=== PATIENT | male | born 1940 | race Hispanic/Latino ===

== ENCOUNTER 2022-10-06 06:22 | Day surgery (SDC) | payer OTHER ==
[2022-10-06] MEDS ORDERED: TROPICAMIDE 1% OPTH 3 ML BOT ONE (06:46)
[2022-10-06] MEDS ORDERED: PHENYLEPHRINE 10% OPTH 5ML ONE (06:46)
[2022-10-06] MEDS ORDERED: CYCLOPENTOLATE 2% OPTH 2 ML ONE (06:46)
[2022-10-06] MEDS ORDERED: KETOROLAC OPTHALMIC 5 ML BOT ONE (06:46)
[2022-10-06] MEDS ORDERED: Ringers Lactate 1,000 ML IV ONE (06:46)
[2022-10-06] MEDS ORDERED: EPINEPHRINE/PF 1 MG/ML AMP ONE (07:03)
[2022-10-06] MEDS ORDERED: BSS OPTHALMIC SOL 15 ML OPTH ONE (07:03)
[2022-10-06] MEDS ORDERED: TOBRADEX 0.3-0.1% OPTH OINTMENT ONE (07:03)
[2022-10-06] MEDS ORDERED: BALANCED SALT IRRIG PLAIN 500 ML IRR ONE (07:03)
[2022-10-06] MEDS ORDERED: DUOVISC 1 KIT OPTH ONE (07:04)
[2022-10-06] MEDS ORDERED: POVIDONE-IODINE 5% EYE DROPS ONE (07:04)
[2022-10-06 07:15] LABS: Absolute Lymphocytes (CBC) 1.2 K/uL (0.7-4.9); Hematocrit 40.3 % (39.6-49.0); Lymphocytes % 20.1 % (15.3-44.8); MCV 90.6 fL (80-100); RBC Red Blood Cell Count 4.45 M/uL (4.33-5.43)
[2022-10-06 07:28] LABS: Potassium 4.2 mEq/L (3.5-5.1)
[2022-10-06 08:45] VITALS: BP 147/59; TEMP 97.5; O2SAT 97
--- NOTE | 2022-10-07 14:18 | EKG ---
Test Date: 2022-10-06 Test Time: 07:09:25 Instrument Mechanic: FRANCY MEASUREMENT RESULTS: Intervals: Rate: 65 DC: 178 QRSD: 100 QT: 384 QTc: 399 [place]: P: 12 DC: 178 QRS: 16 T: 14 INTERPRETIVE STATEMENTS: Normal sinus rhythm Normal ECG Compared to ECG 05/28/2012 18:47:15 No significant changes Electronically Signed On 10-07-22 14:17:11 CDT by Albert Abdi
== END 2022-10-06 08:07 | disposition home or self-care (01) ==
LOC: OR 06:22
PROVIDERS: ATTEND Ophthalmology
DX: H26.9 Unspecified cataract (principal); Z53.09 Procedure and treatment not carried out because of other contraindication
CPT/HCPCS: 93005; 85025; 80048; 36415; J7120; J0171; J1885

== ENCOUNTER 2023-01-05 06:17 | Day surgery (SDC) | payer OTHER ==
[2023-01-02 14:01] LABS: Potassium 4.4 mEq/L (3.5-5.1)
[2023-01-05] MEDS ORDERED: BSS OPTHALMIC SOL 15 ML OPTH ONE (06:58)
[2023-01-05] MEDS ORDERED: EPINEPHRINE/PF 1 MG/ML AMP ONE (06:58)
[2023-01-05] MEDS: PHENYLEPHRINE 10% OPTH 5ML ONE ×3 (07:10→07:35)
[2023-01-05] MEDS: CYCLOPENTOLATE 2% OPTH 2 ML ONE ×3 (07:10→07:34)
[2023-01-05] MEDS: TROPICAMIDE 1% OPTH 3 ML BOT ONE ×3 (07:10→07:35)
[2023-01-05] MEDS: MOXIFLOXACIN HCL 10 DROPS/ML **OR USE OPTH ONE ×3 (07:10→07:35)
[2023-01-05] MEDS ORDERED: Ringers Lactate 1,000 ML IV ONE (07:13)
[2023-01-05] MEDS ORDERED: FENTANYL CITR 100 MCG/2 ML ONE (07:36)
[2023-01-05] MEDS ORDERED: propofoL 200 MG/20 ML VIAL IV ONE ×2 (07:36→08:00)
[2023-01-05] MEDS ORDERED: LIDOCAINE 2% MPF 5 ML VIAL ONE (07:37)
[2023-01-05] MEDS ORDERED: ONDANSETRON 4 MG/2 ML VIAL ONE ×2 (07:38→08:10)
[2023-01-05] MEDS ORDERED: KETOROLAC OPTHALMIC 5 ML BOT ONE (07:42)
[2023-01-05] MEDS: POVIDONE-IODINE 5% EYE DROPS ONE ×2 (07:55→07:59)
[2023-01-05] MEDS: BALANCED SALT IRRIG PLAIN 500 ML IRR ONE ×2 (07:57→08:01)
[2023-01-05] MEDS: DUOVISC 1 KIT OPTH ONE ×4 (08:00→08:15)
[2023-01-05] MEDS: TOBRADEX 0.3-0.1% OPTH OINTMENT ONE ×2 (08:02→08:15)
[2023-01-05] MEDS ORDERED: EPHEDRINE SULF 50 MG/ML VIAL ONE (08:04)
[2023-01-05] MEDS ORDERED: dexAMETHasone 4 MG/ML VIAL ONE (08:36)
[2023-01-05 09:32] VITALS: BP 140/52; TEMP 97.7; O2SAT 98
== END 2023-01-05 11:00 | disposition home or self-care (01) ==
LOC: OR 06:17
PROVIDERS: ATTEND Ophthalmology
PROC: 08RJ3JZ Replacement of Right Lens with Synthetic Substitute, Percutaneous Approach (ICD-10-PCS; principal; 2023-01-05 07:30)
DX: H25.13 Age-related nuclear cataract, bilateral (principal); I10 Essential (primary) hypertension
CPT/HCPCS: 80048; 36415; 66984; J2704 ×2; J1100; J0171; J1885; J2001; J3010; J2405 ×2; J7120; V2632

== ENCOUNTER 2023-04-04 05:57 | Day surgery (SDC) | payer OTHER ==
[2023-03-31 12:53] LABS: Potassium 4.7 mEq/L (3.5-5.1)
[2023-04-04] MEDS ORDERED: Ringers Lactate 1,000 ML IV ONE (06:22)
[2023-04-04] MEDS: PHENYLEPHRINE 10% OPTH 5ML ONE ×3 (06:53→07:23)
[2023-04-04] MEDS: TROPICAMIDE 1% OPTH 15 ML BOT ONE ×3 (06:53→07:23)
[2023-04-04] MEDS: CYCLOPENTOLATE 2% OPTH 2 ML ONE ×3 (06:53→07:23)
[2023-04-04] MEDS: MOXIFLOXACIN HCL 0.5% 3ML OPTH OPTH ONE ×3 (06:53→07:23)
[2023-04-04] MEDS: KETOROLAC OPTHALMIC 5 ML BOT ONE ×3 (06:53→07:23)
[2023-04-04] MEDS ORDERED: BSS OPTHALMIC SOL 15 ML OPTH ONE (06:59)
[2023-04-04] MEDS ORDERED: POVIDONE-IODINE 5% EYE DROPS ONE (07:00)
[2023-04-04] MEDS ORDERED: BALANCED SALT IRRIG PLAIN 500 ML IRR ONE (07:00)
[2023-04-04] MEDS ORDERED: TOBRADEX 0.3-0.1% OPTH OINTMENT ONE (07:00)
[2023-04-04] MEDS ORDERED: EPINEPHRINE 1 MG/ML VIAL ONE (07:00)
[2023-04-04] MEDS ORDERED: DUOVISC 1 KIT OPTH ONE (07:01)
[2023-04-04] MEDS ORDERED: FENTANYL CITR 100 MCG/2 ML ONE (07:22)
[2023-04-04] MEDS ORDERED: ONDANSETRON 4 MG/2 ML VIAL ONE (07:22)
[2023-04-04] MEDS ORDERED: propofoL 200 MG/20 ML VIAL IV ONE (07:22)
[2023-04-04] MEDS ORDERED: LIDOCAINE 2% MPF 5 ML VIAL ONE (07:22)
[2023-04-04] MEDS ORDERED: dexAMETHasone 4 MG/ML VIAL ONE (07:47)
[2023-04-04] MEDS ORDERED: EPHEDRINE SULF 50 MG/ML VIAL ONE (07:47)
--- NOTE | 2023-04-04 09:14 | OP ---
Date of Procedure: 04/04/2023 Surgeon: Onel Garibay MD Preoperative Diagnosis: Visually significant senile cataract, left eye. Postoperative Diagnosis: Visually significant senile cataract, left eye. Procedure Performed: Cataract extraction, left eye, with placement of intraocular lens. Description Of Procedure: After being properly identified in the preoperative holding area, the heraclio ent was taken back to the operating room, where a time-out was performed. The patient was then prepp ed and draped in the normal sterile fashion. Examination of the eye underneath the operating [facility] ope revealed a well-dilated pupil with a good red reflex. The globe was grasped with a pair of 0.12 forceps and paracentesis wounds were made in the 12 o'clock and 6 o'clock positions and the anterior chamber filled with Viscoat. Thereafter, the main phaco incision wound was made temporally using a 2 .4 mm keratome in a triplanar fashion. A continuous curvilinear capsulorrhexis was created using a c ystotome and completed with an Utrata forceps. Hydrodissection and hydrodelineation were carried out resulting in free rotation of the lens nucleus. Phacoemulsification was carried out using a standar d divide and conquer technique. Once all 4 quadrants had been removed, the phaco handpiece was excha nged for bimanual irrigation/aspiration handpieces, which were used to remove the remaining cortical material. The capsular bag was polished and then additional viscoelastic used to inflate the capsula r bag and a Ady and Ady model BC blue power 23.5 diopters, serial #[id number], was implanted into the capsular bag and rotated into position. The bimanual irrigation/ aspiration handpieces were then used to remove all remaining viscoelastic material. The wounds were hydrated and confirmed to be watertight and the procedure concluded with the patient tolerating the procedure well having been under general anesthesia the entire time. The lid speculum and drapes were removed and the eye patch ed over TobraDex ointment. The patient was taken to the postoperative holding area in stable conditi on. As I mentioned, he is to follow up with myself, Dr. Onel Garibay, tomorrow morning. There wer e no complications. Estimated blood loss was nil. No specimens were sent. No drains were placed an d implants are as above. JPG/MODL Voice ID: [id number] Report ID: [id number]
[2023-04-04 10:33] VITALS: BP 147/60; TEMP 96.2; O2SAT 99
== END 2023-04-04 11:20 | disposition home or self-care (01) ==
LOC: OR 05:57
PROVIDERS: ATTEND Ophthalmology
PROC: 08RK30Z Replacement of Left Lens with Intraocular Telescope, Percutaneous Approach (ICD-10-PCS; principal; 2023-04-04 07:30)
DX: H25.9 Unspecified age-related cataract (principal); H54.7 Unspecified visual loss; I10 Essential (primary) hypertension
CPT/HCPCS: 36415; 80048; J0171; J1100; J1885; J2001; J2405; J2704; J3010; J7120; V2632

== ENCOUNTER 2024-03-29 06:30 | Day surgery (SDC) | payer OTHER ==
[2024-03-28 14:49] LABS: Absolute Eosinophils 0.1 K/uL (0-0.5); Absolute Lymphocytes (CBC) 1.3 K/uL (0.7-4.9); Absolute Monocytes 0.5 K/uL (0.1-1.3); Basophils % 0.4 % (0-1.3); Eosinophils % 1.5 % (0-4.4); Hematocrit 37.9 % (39.6-49.0); Hemoglobin 12.8 g/dL (13.6-17.9); Lymphocytes % 18.1 % (15.3-44.8); MCH 31.7 pg (27.0-35.0); MCHC 33.6 g/dL (32.0-36.0); MCV 94.4 fL (80-100); MPV 9.7 fL (7.6-11.3); Monocytes % 7.9 % (3.3-12.3); Neutrophils % 72.1 % (41.7-73.7); Nucleated Red Blood Cells % 0.2 % (0-0); Platelets 173 thou/uL (152-406); RBC Red Blood Cell Count 4.02 M/uL (4.33-5.43); Red Cell Distribution Width 13.2 % (12.1-15.2)
[2024-03-28 14:54] LABS: PT Prothrombin Time 10.8 SECONDS (9.4-12.5); PTT, Activated Partial Thromb 31.4 SECONDS (24.3-36.9); Protime INR 0.96
[2024-03-28 15:05] LABS: Anion Gap 6.1 mEq/L (5.0-15.0); Potassium 4.1 mEq/L (3.5-5.1)
--- NOTE | 2024-03-28 18:38 | RAD REPORT ---
EXAMINATION: TWO VIEW CHEST XR CLINICAL INDICATION: Male, 83 years old. 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 COMPARISON: 01/29/2013 FINDINGS: The lungs are well inflated and clear. No pneumothorax or sizable effusion. The heart is normal in si ze. Mediastinal contours are unremarkable. IMPRESSION: No acute or significant abnormalities.
[2024-03-29] MEDS ORDERED: VERAPAMIL HCL 10 MG/4 ML VIAL IV ONE (06:45)
[2024-03-29] MEDS ORDERED: HEPARIN 10,000 UNIT/10 ML VIAL IV ONE ×2 (06:45→07:39)
[2024-03-29] MEDS ORDERED: LIDOCAINE 1% 20 ML MDV ONE (06:45)
[2024-03-29] MEDS ORDERED: HEPA 1000U/500MLS 2,000 UNIT/1,000 ML BAG IV ONE (06:45)
[2024-03-29] MEDS ORDERED: ATROPINE SULF 1 MG/10 ML SYR IV ONE (06:46)
[2024-03-29] MEDS ORDERED: MIDAZOLAM HCL 2 MG/2 ML INJ ONE (06:46)
[2024-03-29] MEDS ORDERED: CLOPIDOGREL 75 MG TABLET ONE (06:47)
[2024-03-29] MEDS ORDERED: HEPARIN 5000 UNIT/ML 1 ML VIAL ONE (06:47)
[2024-03-29] MEDS ORDERED: ASPIRIN 325 MG TAB ONE (06:47)
[2024-03-29] MEDS ORDERED: FENTANYL CITR 100 MCG/2 ML ONE (06:47)
[2024-03-29] MEDS ORDERED: TICAGRELOR 90 MG TABLET PO ONE (06:47)
[2024-03-29] MEDS ORDERED: NA CHLORIDE 0.9% 500 ML ONE (07:01)
[2024-03-29] MEDS ORDERED: ASPIRIN 81 MG CHEWABLE TABLET ONE (07:40)
[2024-03-29 08:29] VITALS: TEMP 97.8
--- NOTE | 2024-03-29 09:00 | OP ---
Date of Procedure: 03/29/2024 Surgeon: GLADIS BELTRAN Procedures Performed: 1.Selective coronary angiogram. 2.Left heart catheterization. 3.PCI of severe proximal to mid LAD stenosis, used 2.75 x 38 mm Synergy drug-eluting stent overlappe d proximally by another 2.75 x 60 mm Synergy drug-eluting stent, balloon inflated to high pressure to a size of 2.95. Indication: Chest pain with abnormal stress test. Access: Right radial artery 6-Eritrean, closed with TR band. Complications: None. Bleeding: Less than 50 mL. Anesthesia: Total sedation time was 45 minutes, used fentanyl and Versed. Description Of Procedure: After risks, benefits, and alternatives were explained, the patient agreed to procedure and signed informed consent. [facility], prepped and draped in usual sterile fashion. Then, I accessed right radial artery using pedi atric micropuncture kit, placed a 6-Eritrean Slender sheath, and took 5-Eritrean Kalida 4 catheter over J- wire into the aortic root across the aortic valve, measured LVEDP. Pullback did not record any gradi ent, then engaged the left main, took standard views, and then the RCA, took standard views, and then exchanged for 6-Eritrean EBU3.5 guide, engaged the left main, gave systemic heparin to assure ACT leve l above 250 throughout the procedure, loaded with 180 Brilinta and 81 mg of aspirin and then took bienvenido rt run-through wire into the LAD, placed it distally crossing the stenosis. Subsequently, I used a 3 .0 balloon to pre-dilate the lesion. Lesion expanded very well and then placed a 2.75 x 38 mm Synerg y drug-eluting stent to cover the mid segment all the way proximal and then placed another 2.75 x 60 mm stent to overlap with the first one, inflated the balloon to high pressure to a size of 2.95, and then final angiogram after removing the wire was satisfactory. Excellent results and then removed th e guide and the sheath and placed TR band with good hemostasis. Findings: 1.Left main is normal. 2.LAD; proximal diffuse 70% to 80%, mid 90%, status post successful PCI as above. Diagonal branch h as luminal irregularities. The rest of the LAD is normal. 3.Left circumflex, very large and dominant. It has takeoff OM focal 40% stenosis, OM has mid 80% st enosis, and the circ distally has 60% focal stenosis. 4.RCA; small, nondominant with luminal irregularities. 5.LVEDP is elevated at 50 mmHg. 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 2.Severe OM1 branch stenosis. We will stage this for PCI at a later time in about 4 to 6 weeks. Recommendation: Aspirin, Brilinta, high-dose statin, and staged PCI of the OM1 in about 4 to 6 weeks . SR/MODL Voice ID: [id number] Report ID: [id number]
[2024-03-29 10:01] VITALS: O2SAT 100
[2024-03-29 11:15] VITALS: BP 158/60
--- NOTE | 2024-04-05 16:21 | EKG ---
Test Date: 2024-03-28 Test Time: 14:33:30 Change Management: ANATOLY MEASUREMENT RESULTS: Intervals: Rate: 64 [place]: 174 QRSD: 108 QT: 400 QTc: 412 [place]: P: 72 WA: 174 QRS: 64 T: 42 INTERPRETIVE STATEMENTS: Normal sinus rhythm Normal ECG Compared to ECG 10/06/2022 07:09:25 No significant changes Electronically Signed On 04-05-24 16:08:49 NAIL TECHNICIAN TEACHER by Oscar Christianson
== END 2024-03-29 11:30 | disposition home or self-care (01) ==
LOC: PRE 06:30 → CCL 11:30
PROVIDERS: ATTEND Internal Medicine
DX: I25.10 Atherosclerotic heart disease of native coronary artery without angina pectoris (principal); I10 Essential (primary) hypertension; E78.2 Mixed hyperlipidemia; Z79.82 Long term (current) use of aspirin; Z79.899 Other long term (current) drug therapy
CPT/HCPCS: 36415; 71046; 76937; 80048; 85025; 85610; 85730; 93005; 93458; 99152; C1725; C1893; C9600; J0461; J1644; J2003; J2250; J3010; J7040; Q9966

== ENCOUNTER 2024-04-15 14:15 | Inpatient (IN) | payer OTHER ==
--- OUTSIDE RECORDS SUMMARY | 2024-04-15 14:19 | XMS REPORT | Continuity of Care Document ---
Author Name Unknown Address [address] [facility]. [address] [place] [address] [facility] Address [address] [facility] [address] [place] [address] Care Team Providers Care Chief Deputy Sheriff Name Role Phone OCTAVIO Heart [facility], [facility] Care Physician Unavailable HANG RODRIGUEZ Attending Clinician Unavailable NAHID SHUKLA Attending Clinician Unavailable Nahid Shukla MD Attending Clinician [phone] Hang Rodriguez MD Attending Clinician [phone] GLEN MILTON Attending Clinician Unavailable Glen Milton MD Attending Clinician [phone] Hang Rodriguez MD Attending Clinician [phone] YE FRANCO Attending Clinician UnavailANIKA Soto Attending Clinician Unavailable KIET WHATLEY Attending Clinician Unavailable BUCKY GALLARDO Attending Clinician Unavailable JACKIE BHATTI Attending Clinician Unavailable ZENAIDA WELLINGTON Attending Clinician Unava ilyulissa PATTON Attending Clinician Unavailable Zenaida Wellington MD Attending Clinician [phone] Karine GAUTHIER, Glen Attending Clinician [phone] Doctor Unassigned, Edon Attending Clinician U navailable Lab, Adc Fam Pob I Attending Clinician Unavailab Fernanda Hollingsworth Attending Clinician FERNANDA BRITTON Attending Clinician Unavailable HNAG RODRIGUEZ Admitting Clinician Unavailable POOJA Admitting Clinician Unavailable Payers Payer Name Policy Type Policy Number Effective Date Expirati on Date Source HUMANSean GOLD PLS O [id number] 2021 00:00:00 MEDICAID [facility] [id number] 2019 00:00:00 WELLCARE NO PREMIUM HMO [id number] 2020 00:00:00 [employer] MEDICARE ADVANTAGE DUAL PLAN HMO 7 [id number] 2021 00:00:00 HU[employer]NA MEDICARE [id number] GOLD PLUS 2021 7 [id number] 2021 00:00:00 Problems Condition Name Condition Details Condition Category Status Onset Date Resolution Date Last Treatment Date Treating Clinician Comments Source 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) Disease Active 01-14 00:00: 00 [facility] Confusion Confusion Disease Active 08-08 00:00: 00 [facility] Coronary artery disease involving [place] coronary artery of [place] heart without angina pectoris Coronary artery disease involving [place] coronary artery of [place] heart without angina pectoris Disease Active 08-08 00:00: 00 [facility] Chest pain, unspecifie d type Chest pain, unspecifie d type Disease Active 08-08 00:00: 00 [facility] Malignant neoplasm of prostate Malignant neoplasm of prostate Disease Active 09-19 00:00: 00 [facility] 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 ICD10 Diagnosis Term Test Administrator Utility [facility] Cough Cough Disease Active 11-29 00:00: 00 [facility] Essential hypertensi on, benign Essential hypertensi on, benign Disease Active 11-29 00:00: 00 [facility] HLD (hyperlipi demia) HLD (hyperlipi demia) Disease Active 11-29 00:00: 00 Overview: Formattin g of this note might be different from the original. ICD10 Diagnosis Term Test Administrator Utility [facility] Esophageal reflux Esophageal reflux Disease Active 11-29 00:00: 00 [facility] Allergies, Adverse Reactions, Alerts Allergy Name Allergy Type Status Severity Reaction(s) Onset Date Inactive Date Treating Clinician Comments Source No Known Allergie s DA Active U 11-17 00:00: 00 [facility] No Known Allergie s DA Active U 11-16 00:00: 00 [facility] BECK INHIBITO RS Drug Class Active Unknown-Cmnt 09-19 00:00: 00 [facility] Beck Inhibito rs Propensi ty to adverse reaction s Active Unknown - See comments 09-19 00:00: 00 Cough [facility] Beck Inhibito rs Propensi ty to adverse reaction s Active Unknown - See comments 09-19 00:00: 00 Cough [facility] Social History Social Habit Start Date Stop Date Quantity Comments Source [facility] Exposure to SARS-CoV-2 (event) Not sure [facility] History SDOH Alcohol Frequency [facility] History SDOH Alcohol Std Drinks [facility] History SDOH Alcohol Binge [facility] Alcoholic beverage intake 2024-04-03 00:00:00 2024-04-03 00:00:00 Current drinker of alcohol (finding) [facility] History of Social function 2023-08-09 00:00:00 2023-08-09 00:00:00 [facility] Tobacco use and exposure 2023-08-09 00:00:00 2023-08-09 00:00:00 Smokeless tobacco non-user [facility] Alcohol intake 2023-08-09 00:00:00 2023-08-09 00:00:00 Current drinker of alcohol (finding) [facility] Alcohol Comment 2006-12-08 00:00:00 2006-12-08 00:00:00 quit moderate etoh use 30+ yrs ago [facility] Sex assigned at 1940 00:00:00 1940 00:00:00 [facility] Smoking Status Start Date Stop Date Source Never smoked tobacco [facility] Medications Ordered Medication Name Filled Medication Name Start Date Stop Date Current Medication? Ordering Clinician Indication Dosage Frequency Signature (SIG) Comments Components Source VITAMIN E, BULK, MISC 2023-04 14:54: 13 Yes 180mg Take 180 mg in the morning. [facility] Zinc Acetate, Oral, 50 mg (zinc) Cap 2023-04 14:54: 13 Yes Take by mouth. [facility] donepeziL 5 mg tablet 01-19 00:00: 00 Yes [facility] tc 99m-tetrofo smin (MYOVIEW) injection 41.4 millicurie 01-17 17:30: 00 01-17 17:20 :00 No [id number] 41.4mCi 41.4 millicurie , Intravenou s, ONCE, 1 dose, On Mon01/18/24 at 1230, Routine [facility] tc 99m-tetrofo smin (MYOVIEW) injection 15.2 millicurie 01-17 16:00: 00 01-17 16:00 :00 No [id number] 15.2mCi 15.2 millicurie , Intravenou s, ONCE, 1 dose, On Mon01/18/24 at 1100, Routine [facility] donepeziL 10 mg tablet 08-08 13:40: 58 08-08 00:00 :00 No 10mg Take 1 tablet by mouth in the morning. [facility] valsartan 320 mg tablet 08-02 00:00: 00 Yes 320mg Take 1 tablet by mouth in the morning. [facility] atorvastati n 20 mg tablet 08-02 00:00: 00 Yes 20mg Take 1 tablet by mouth at bedtime. [facility] HYDROCHLORO THIAZIDE 25 MG ORAL TAB 09-17 00:00: 00 08-08 00:00 :00 No [id number] 1 tab po dilay [facility] VIAGRA 50 MG ORAL TAB 06-12 00:00: 00 Yes [id number] 1 by mouth every day prn ED [facility] PEPCID 40 MG ORAL TAB 06-12 00:00: 00 08-08 00:00 :00 No [id number] 1 po bid [facility] METOPROLOL TARTRATE 25 MG ORAL TAB 06-12 00:00: 00 08-08 00:00 :00 No [id number] 1 po bid [facility] PRAVACHOL 20 MG ORAL TAB 06-12 00:00: 00 08-08 00:00 :00 No [id number] 1 po qhs [facility] LISINOPRIL- HYDROCHLORO THIAZIDE 20-25 MG ORAL TAB 06-12 00:00: 00 08-08 00:00 :00 No [id number] 1 by mouth every day [facility] ENALAPRIL MALEATE 10 MG ORAL TAB 12-08 00:00: 00 08-08 00:00 :00 No [id number] 1 po bid [facility] HYDROCHLORO THIAZIDE 25 MG ORAL TAB 12-08 00:00: 00 08-08 00:00 :00 No [id number] 1 po qam [facility] PROTONIX 40 MG ORAL TBEC 12-08 00:00: 00 08-08 00:00 :00 No [id number] 1 po bid [facility] ASPIRIN 81 MG ORAL CHEW 2005-04 00:00: 00 Yes 1 tab daily [facility] Immunizations Ordered Immunization Name Filled Immunization Name Date Status Comments Source PPD (TB) 2005-11-29 00:00:00 Completed [facility] PPD (TB) 2005-11-29 00:00:00 Completed [facility] PPD (TB) 2005-11-29 00:00:00 Completed [facility] PPD (TB) 2005-11-29 00:00:00 Completed [facility] PPD (TB) 2005-11-29 00:00:00 Completed [facility] PPD (TB) 2005-11-29 00:00:00 Completed [facility] PPD (TB) 2005-11-29 00:00:00 Completed [facility] PPD (TB) 2005-11-29 00:00:00 Completed [facility] PPD (TB) 2005-11-29 00:00:00 Completed [facility] PPD (TB) Unknown Completed [facility] PPD (TB) Unknown Completed [facility] PPD (TB) Unknown Completed [facility] PPD (TB) Unknown Completed [facility] PPD (TB) Unknown Completed [facility] PPD (TB) Unknown Completed [facility] PPD (TB) Unknown Completed [facility] Vital Signs Vital Name Observation Time Observation Value Comments S ource Systolic blood pressure 2024-04-03 19:25:00 130 mm[Hg] [facility] Diastolic blood pressure 2024-04-03 19:25:00 73 mm[Hg] [facility] Heart rate 2024-04-03 19:25:00 70 /min [facility] Body temperature 2024-04-03 19:25:00 36.39 Aide [facility] Body height 2024-04-03 19:25:00 172.7 cm [facility] Body weight 2024-04-03 19:25:00 73.846 kg [facility] BMI 2024-04-03 19:25:00 24.75 kg/m2 [facility] Oxygen saturation in Arterial blood by Pulse oximetry 2024-04-03 19:25:00 98 /min [facility] Systolic blood pressure 2024-01-23 19:23:00 133 mm[Hg] [facility] Diastolic blood pressure 2024-01-23 19:23:00 63 mm[Hg] [facility] Heart rate 2024-01-23 19:23:00 76 /min [facility] Body temperature 2024-01-23 19:18:00 36.61 Aide [facility] Respiratory rate 2024-01-23 19:18:00 16 /min [facility] Body height 2024-01-23 19:18:00 172.7 cm [facility] Body weight 2024-01-23 19:18:00 72.576 kg [facility] BMI 2024-01-23 19:18:00 24.33 kg/m2 [facility] Oxygen saturation in Arterial blood by Pulse oximetry 2024-01-23 19:18:00 98 /min [facility] Systolic blood pressure 2024-01-15 15:26:00 111 mm[Hg] [facility] Diastolic blood pressure 2024-01-15 15:26:00 52 mm[Hg] [facility] Heart rate 2024-01-15 15:26:00 67 /min [facility] Body temperature 2024-01-15 15:26:00 36.44 Aide [facility] Respiratory rate 2024-01-15 15:26:00 16 /min [facility] Body height 2024-01-15 15:26:00 172.7 cm [facility] Body weight 2024-01-15 15:26:00 70.67 kg [facility] BMI 2024-01-15 15:26:00 23.69 kg/m2 [facility] Oxygen saturation in Arterial blood by Pulse oximetry 2024-01-15 15:26:00 98 /min [facility] Systolic blood pressure 2023-08-09 18:29:00 117 mm[Hg] [facility] Diastolic blood pressure 2023-08-09 18:29:00 49 mm[Hg] [facility] Heart rate 2023-08-09 18:29:00 75 /min [facility] Respiratory rate 2023-08-09 18:29:00 19 /min [facility] Body height 2023-08-09 18:29:00 172.7 cm [facility] Body weight 2023-08-09 18:29:00 81.012 kg [facility] BMI 2023-08-09 18:29:00 27.16 kg/m2 [facility] Oxygen saturation in Arterial blood by Pulse oximetry 2023-08-09 18:29:00 98 /min [facility] Heart rate 2021-02-25 21:25:00 64 /min [facility] Body temperature 2021-02-25 21:25:00 36.22 Aide [facility] Respiratory rate 2021-02-25 21:25:00 18 /min [facility] Body height 2021-02-25 21:25:00 172.7 cm [facility] Body weight 2021-02-25 21:25:00 82.283 kg [facility] BMI 2021-02-25 21:25:00 27.58 kg/m2 [facility] Oxygen saturation in Arterial blood by Pulse oximetry 2021-02-25 21:25:00 100 /min [facility] Systolic blood pressure 2021-02-25 21:25:00 152 mm[Hg] [facility] Diastolic blood pressure 2021-02-25 21:25:00 66 mm[Hg] [facility] Procedures Procedure Date / Time Performed Performing Clinician Source LACHELLE,POST-VOID RES,US,NON-IMAGING 2024-04-03 19:33:00 Nahid Shukla [facility] LACHELLE,POST-VOID RES,US,NON-IMAGING 2024-01-23 19:43:00 Glen Milton [facility] POCT URINALYSIS AUTO 2024-01-23 19:43:00 Dipika Milton [facility] NM MYOCARDIUM PERFUSION STRESS AND REST 2024-01-18 19:01:00 Hang Rodriguez [facility] MYOCARDIUM PERFUSION STRESS AND REST 2024-01-18 19:01:00 Hang Rodriguez [facility] NM MYOCARDIUM PERFUSION STRESS AND REST 2024-01-18 19:01[facility]FUSION STRESS AND REST 2024-01-18 19:01:00 [facility] TRANSTHORACIC ECHO (TTE) COMPLETE 2024-01-18 17:13:00 [facility] & RHYTHM STRIP 2023-08-09 18:34:10 [facility] 2023-08-08 13:59:58 Doctor Zhanna james, Edon [facility] POCT URINALYSIS AUTO 2021-02-25 21:21:00 Dipika Milton [facility] Encounters Start Date/Time End Date/Time Encounter Type Admission Type Attending [facility] Care Facility Care Department Encounter ID Source 2024-08-08 13:00:00 2024-08-08 13:00:00 [id number] 2024-04-03 13:30:00 2024-04-03 14:19:55 Outpatient R VAZQUEZ, [facility] [id number] [facility] 2024-04-03 13:30:00 2024-04-03 14:19:55 Office Visit VazquezNahid [facility] [id number] 350.1.13.10 4.2.7.2.686 [id number] [facility] 2024-02-19 09:00:00 2024-02-19 09:00:00 Outpatient R VAZQUEZ, [facility] [id number] [facility] 2024-01-30 14:00:00 2024-01-30 14:00:00 Outpatient Daniela VAZQUEZ [facility] [id number] [facility] 2024-01-19 00:00:00 2024-01-26 13:26:14 [facility] [id number] 350.1.13.10 4.2.7.2.686 [id number] [facility] 2024-01-23 14:30:00 2024-01-23 16:08:25 [id number] 2024-01-23 14:30:00 2024-01-23 16:08:25 [facility] [id number] 350.1.13.10 4.2.7.2.686 [id number] [facility] 2024-01-18 10:50:11 2024-01-18 23:59:00 Outpatient R HANG RODRIGUEZ [facility] [id number] [facility] 2024-01-18 10:50:11 2024-01-18 23:59:00 Hospital Encounter Hang Rodriguez [facility] 1.2.840.114 350.1.13.10 4.2.7.2.686 [id number] [facility] 2024-01-18 10:49:53 2024-01-18 10:49:53 Hospital Encounter Hang Rodriguez [facility] 1.2.840.114 350.1.13.10 4.2.7.2.686 [id number] [facility] 2024-01-18 10:49:42 2024-01-18 10:49:42 Hospital Encounter Hang Rodriguez [facility] 1.2.840.114 350.1.13.10 4.2.7.2.686 [id number] [facility] 2024-01-18 10:49:06 2024-01-18 10:49:06 Hospital Encounter Hang Rodriguez [facility] 1.2.840.114 350.1.13.10 4.2.7.2.686 [id number] [facility] 2024-01-18 00:30:00 2024-01-18 10:48:00 Hospital Encounter Hang Rodriguez [facility] 1.2.840.114 350.1.13.10 4.2.7.2.686 [id number] [facility] 2024-01-15 10:00:00 2024-01-15 10:40:29 [facility] [id number] [facility] 2024-01-15 10:00:00 2024-01-15 10:40:29 [facility] 1.2.840.114 350.1.13.10 4.2.7.2.686 [id number] [facility] 2023-09-28 00:00:00 2023-09-28 00:00:00 Outpatient R HANG RODRIGUEZ [facility] [id number] [facility] 2023-09-21 00:00:00 2023-09-21 14:19:10 Telephone Hang Rodriguez [facility] 1.2.840.114 350.1.13.10 4.2.7.2.686 [id number] [facility] 2023-09-07 15:38:20 2023-09-07 23:59:00 [facility] [id number] [facility] 2023-09-07 15:38:20 2023-09-07 23:59:00 [facility] 1.2.840.114 350.1.13.10 4.2.7.2.686 [id number] [facility] 2023-08-11 00:00:00 2023-08-11 00:00:00 [facility] 1.2.840.114 350.1.13.10 4.2.7.2.686 [id number] [facility] 2023-08-10 00:00:00 2023-08-10 00:00:00 [facility] 1.2.840.114 350.1.13.10 4.2.7.2.686 [id number] [facility] 2023-08-09 13:40:00 2023-08-09 14:01:25 [facility] [id number] [facility] 2023-08-09 13:40:00 2023-08-09 14:01:25 [facility] 1.2.840.114 350.1.13.10 4.2.7.2.686 [id number] [facility] 2023-08-07 00:00:00 2023-08-07 00:00:00 [facility] 1.2.840.114 350.1.13.10 4.2.7.2.686 [id number] [facility] 2023-08-01 13:00:00 2023-08-01 13:00:00 Outpatient R YE FRANCO [facility] [id number] [facility] 2023-06-08 15:30:00 2023-06-08 15:30:00 Outpatient R YE FRANCO [facility] [id number] [facility] 2022-01-19 13:00:00 2022-01-19 13:00:00 Outpatient ANIKA DRAPER [id number] [facility] 2022-01-17 13:20:00 2022-01-17 13:20:00 Outpatient KIET WHATLEY [facility] [id number] [facility] 2022-01-13 00:00:00 2022-01-13 00:00:00 Outpatient BUCKY GALLARDO [facility] [id number] [facility] 2021-12-20 14:20:00 2021-12-20 14:20:00 Outpatient JACKIE BHATTI [facility] [id number] [facility] 2021-11-16 00:00:00 2021-11-16 00:00:00 Outpatient ZENAIDA WELLINGTON [id number] [facility] 2021-11-15 10:43:00 2021-11-15 10:43:00 Outpatient LLOYDDAVIE IRBY IL[facility] [id number] [facility] 2021-11-15 00:00:00 2021-11-15 00:00:00 Outpatient ZENAIDA WELLINGTON [id number] [facility] 2021-10-15 00:00:00 2021-10-15 00:00:00 Outpatient ZENAIDA WELLINGTON [id number] [facility] 2021-10-07 14:30:00 2021-10-07 15:00:00 Office Visit Zenaida Wellington [place] 1.2.840.114 350.1.13.13 [id number] [id number] [facility] 2021-10-06 14:30:00 2021-10-06 14:30:00 Outpatient ZENAIDA WELLINGTON [id number] [facility] 2021-03-25 14:00:00 2021-03-25 14:00:00 Outpatient NAHID GARCIA [facility] [id number] [facility] 2021-02-25 15:30:00 2021-02-25 16:59:55 Outpatient GLEN MOSCOSO [facility] [id number] [facility] 2021-02-25 15:26:25 2021-02-25 16:59:55 Office Visit Glen Milton [facility] 1.2.840.114 350.1.13.10 4.2.7.2.686 [id number] [facility] 2021-01-28 00:00:00 2021-01-28 00:00:00 Orders Only Doctor Unassigned, Edon [facility] 1.20.114 350.1.13.10 4.2.7.2.686 [id number] [facility] 2019-11-29 11:10:53 2019-11-29 11:30:53 Laboratory Only Lab, Adc [facility] 1.284.114 350.1.13.10 4.2.7.2.686 [id number] [facility] 2019-11-29 11:00:00 2019-11-29 11:00:00 Outpatient R FERNANDA BRITTON [facility] [id number] [facility] 2019-11-29 00:00:00 2019-11-29 00:00:00 Letter (Out) Doctor Unassigned, Edon [facility] 1.2840.114 350.1.13.10 4.2.7.2.686 [id number] [facility] 2019-11-29 00:00:00 2019-11-29 00:00:00 Letter (Out) Doctor Unassigned, Edon [facility] 1.2840.114 350.1.13.10 4.2.7.2.686 [id number] [facility] Results Test Description Test Time Test Comments Results Result Co mments Source [facility], [id number] 19:43:00 * Test Item Value Reference Range Interpretation Comme nts POCT U SP GRAV (test code = 3255) 1.030 mg/dl 1.005-1.025 A POCT PH U (test code = 3254) 5.5 mg/dl 5-8 POCT U LEUK EST (test code = 3263) Negative Negative - Negative POCT U NIT (test code = 3262) Negative Negative - Negati ve POCT U PROT (test code = 3259) Trace Negative - Negative A POCT U GLU (test code = 3256) Negative Negative - Negati ve POCT U KETONE (test code = 3258) Trace Negative - Negative A POCT U UROBILI (test code = 3260) 0.2 mg/dl 0.2-1 POCT U BILI (test code = 3261) Negative Negative - Negative POCT U BLD (test code = 3257) Negative Negative - Negati ve POCT U COLOR (test code = 3266) Yellow POCT U APPEAR (test code = 3267) Clear Lab Interpretation (test cod e = [id number]) Abnormal [facility],POST-VOID RES,US,[id number] 19:43:00* Test Item Value Reference Range Interpretation Comme nts PVR (URINE VOLUME) (test code = 5193) 5 ml 0-100 [facility]an[facility] (TTE)2024-01-18 22:05:33* Test Item Value Reference Range Interpretation Comme nts Height (test code = 6100005962) 67 in Weight (test code = 0178439723) 166 lbs Systolic BP (test code = 9353493941) 168 mmHg Diastolic BP (test code = 5708314237) 60 mmHg Heart Rate (test code = 7911499574) 72 bpm LV GLS Endo Peak A2C () (test code = 8865059231) -18.80 % LV GLS Endo Peak A3C () (test code = 9936662482) -20.60 % LV GLS Endo Peak A4C () (test code = 7428000991) -18.40 % LV GLS Endo Peak Avg () (test code = 8306171094) -19.30 % BSA (test code = 8615839234) 1.89 m2 LVIDD (test code = 3545677199) 4.00 cm Left Ventricular End Diastolic Volume by Teichholz Method (test code = 8783166) 70.7 mL IVS (test code = 0966906080) 1.53 cm Interventricular Septum Diastolic Thickness by 2D (test code = 2683721) 1.53 cm LVPWD (test code = 3170549411) 1.53 cm PW (test code = 2426551250) 1.53 cm 0.6-1.1 EF(Teich) (test code = 4220019208) 60.20 % LVIDS (test code = 2111581791) 2.70 cm Left Ventricular End Systolic Volume by Teichholz Method (test code = 9956650) 28.1 mL FS (test code = 8580461068) 32 % EF - 2D (test code = 48891296) 60.20 % LVOT diameter (test code = 4755442683) 2.00 cm LVOT area (test code = 5865918102) 3.20 cm2 Ao root diam (test code = 9482810775) 3.00 cm Aortic root (test code = 5321270523) 3.0 cm Ao root annulus (test code = 1249674602) 3.0 cm TR Peak Jovanny (test code = 2605829087) 248.6 cm/s Triscuspid Valve Regurgitation Peak Gradient (test code = 3162348508) 24.7 mmHg Pulmonic Regurgitant End Max Velocity (test code = 4382984513) 89.2 cm/s MR max PG (test code = 5058724770) 109.70 mm[Hg] MR max jovanny (test code = 6174762420) 523.60 cm/s Mr max jovanny (test code = 3123944587) 523.6 m/s MV Peak A Jovanny (test code = 8332018439) 97.4 cm/s MV Peak E Jovanny (test code = 7277763303) 84.2 cm/s E/A ratio (test code = 3608607827) 0.86 ratio MV stenosis pressure 1/2 time (test code = 3860682496) 104.6 ms E wave decelartion time (test code = 1629414391) 0.35 s MV E/e' septal (test code = 5866891009) 9.4 cm/s Tapse (test code = 3378810482) 1.52 cm AV regurgitation pressure 1/2 time (test code = 2311915945) 1064 ms AI dec slope (test code = 2217846039) 79.00 cm/s2 AI max jovanny (test code = 2345202230) 287.10 cm/s AI max PG (test code = 1582002080) 33.00 mm[Hg] Aortic valve mean velocity (test code = 2514766167) 96.4 cm/s Ao peak jovanny (test code = 0737603141) 162.0 cm/s Ao VTI (test code = 4403496557) 34.1 cm Ao max PG (test code = 5927575351) 10.50 mm[Hg] AV peak gradient (test code = 5092340838) 10.5 mmHg AV mean gradient (test code = 8334836637) 4.4 mmHg LVOT stroke volume (test code = 1774143050) 55.00 cm3 LVOT peak jovanny (test code = 0605696573) 62.9 cm/s LVOT mn grad (test code = 9302042932) 0.8 mmHg AV LVOT peak gradient (test code = 3284075910) 1.58 mmHg LVOT peak VTI (test code = 7088461980) 17.4 cm AV area by cont VTI (test code = 2860378150) 1.6 cm2 AV area peak jovanny (test code = 1246870676) 1.2 cm2 LV V1 mean (test code = 7769230681) 41.80 cm/s AV valve area (test code = 0372215331) 1.61 cm2 LAV(MOD-sp4) (test code = 3669642152) 69.90 mL LA size (test code = 0706980885) 4.5 cm MV Prop V (test code = 3526963496) 30.00 cm/s Radiology Study observation (narrative) (test code = 26787-3) CODIE (test code = CODIE) ?Left?Ventricle: Left ventricle size is normal. Mild basal septal thickening. Normal wall motion. Low normal systolic function with a visually estimated EF of 50 - 55%. GLS -19.3%. There is impaired relaxation. ?Right?Ventricle: Right ventricle size is normal. Normal systolic function. ?Tricuspid?Valve: Insufficient tricuspid regurgitation jet to estimate RVSP, but probably normal. ?RA pressure is 0-5 mmHg. ?Left?Atrium: Left atrium is mildly dilated. Left VentricleLeft ventricle size is normal. Mild basal septal thickening. Normal wall motion. Low normal systolic function with a visually estimated EF of 50 - 55%. GLS -19.3%. There is impaired relaxation.Right VentricleRight ventricle size is normal. Normal systolic function.Left AtriumLeft atrium is mildly dilated.Right AtriumRight atrium size is normal.IVC/SVCIVC diameter is less than or equal to 21 mm and decreases greater than 50% during inspiration; therefore the estimated right atrial pressure is normal (~0-5 mmHg).Mitral ValveMildly thickened leaflets. Mild mitral annular calcification. Trace transvalvular regurgitation.Tricusp id ValveTricuspid valve structure is normal. Trace transvalvular regurgitation. Insufficient tricuspid regurgitation jet to estimate RVSP, but probably normal. RA pressure is 0-5 mmHg.Aortic ValveTricuspid. Mildly thickened cusps. Mild transvalvular regurgitation.Pulmoni c ValveNot well visualized. Trace transvalvular regurgitation.Ascendi ng AortaNormal sized aorta.PericardiumThe pericardium is normal. No pericardial effusion.Study DetailsStudy quality was adequate. A complete echocardiogram was performed using 2D, color flow Doppler, spectral Doppler and strain. [facility] [id number] 13:59:58Ordered by an unspecified provider.[facility] 2023-08-08 13:59:58Ordered by an unspecified provider.[facility] [id number] 13:59:58Ordered by an unspecified provider.[facility]UM[facility]AT[facility] RATIO, URINE, [id number] 04:13:09* Test Item Value Reference Range Interpretation Comme nts CREATININE, URINE, RANDOM (test code = 2072) 237.4 MG/DL NOT ESTAB ALBUMIN, URINE, RANDOM (test code = 23146) 16.1 MG/DL NOT ESTAB CALC ALBUMIN/CREAT, RND (test code = 61124) 68 MG/G <30 H Note: Albumin/Cr eatinine ratio reference interval reflects ADA and NKF guidelines. UNLESS OTHERWISE INDICATED, ALL TESTING PERFORMED [facility] [address] [place] [id number] INDOOR LANDSCAPE ARCHITECT: MARNI AYALA M.D. CLIA NUMBER [id number] [place]. [id number] CULTURE, [id number] 09:29:28SPECIMEN NUMBER: [id number] CULTURE, URINE SPECIMEN NUMBER: [id number] SPECIMEN COMMENT: URINE SOURCE: URINE REPORT STATUS: FINAL FINAL REPORT: 09/27/2021 10-50,000 CFU/ML UROGENITAL KEVIN PRESENT NO C OMMON PATHOGENSHEMOGLOBIN [id number] 05:50:15* Test Item Value Reference Range Interpretation Comme nts HEMOGLOBIN A1c (test code = 95477) 5.5 % 4.2-5.6 UNLESS OTHERWISE INDICATED, ALL TESTING PERFORMED [facility] [employer] [address] [place] [address] INDOOR LANDSCAPE ARCHITECT: MARNI AYALA M.D. CLIA NUMBER [id number] [place]. [id number] HIV 1/2 4TH GEN, RFLX [id number] 04:24:57* Test Item Value Reference Range Interpretation Comme nts HIV 1/2 4TH GEN, RFLX CONF ( test code = 3514) NON-REACTIVE NON-REACTIVE HEPATITIS PANEL, [id number] 04:24:57* Test Item Value Reference Range Interpretation Comme nts HEPATITIS A IgM (test code = 51254) NON-REACTIVE NON-REACTIVE HEPATITIS B CORE IgM (test code = 4644) NON-REACTIVE NON-REACTIVE HEPATITIS B SURF AG (test code = 2739) NON-REACTIVE NON-REACTIVE HEPATITIS C ANTIBODY (test code = 4675) NON-REACTIVE NON-REACTIVE INTERPRETATION HEPATITIS A: (test code = 2552) (NOTE) Hepatitis A serology shows no evidence of acute hepatitis A. INTERPRETATION HEPATITIS B: (test code = 84661) (NOTE) Hepatitis B serology shows no evidence of acute hepatitis B andno indication of exposure to hepatitis B virus in the previous jese eight months. INTERPRETATION HEPATITIS C: (test code = 62820) (NOTE) Hepatitis C serology shows no evidence of exposure to hepatitisC virus at this time. It can take up to 12 months after exposure tothe hepatitis C virus for antibodies to become detectable in the blood in certain patients. CBC W/AUTO DIFF WITH [id number] 04:23:45* Test Item Value Reference Range Interpretation Comme nts WBC (test code = 1001) 6.4 K/UL 3.5-11.0 RBC (test code = 1002) 4.65 M/UL 4.50-6.10 HEMOGLOBIN (test code = 1003) 14.3 G/DL 13.5-17.0 HEMATOCRIT (test code = 1004) 41.9 % 40.0-51.0 MCV (test code = 1005) 90.1 fL 80.0-99.0 MCH (test code = 1006) 30.8 PG 25.0-33.0 MCHC (test code = 1007) 34.1 G/DL 31.0-36.0 RDW (test code = 1038) 12.9 % 11.5-15.0 NEUTROPHILS (test code = 1008) 68.6 % LYMPHOCYTES (test code = 1010) 18.2 % MONOCYTES (test code = 1011) 9.3 % EOSINOPHILS (test code = 1012) 2.5 % BASOPHILS (test code = 1013) 0.9 % IMMATURE GRANULOCYTES (test code = 1036) 0.5 % NUCLEATED RBCS (test code = 1065) 0.0 /100 WBC'S See_Comment [Automated messa ge] The system which generated this result transmitted reference range: 0.0. The reference range was not used to interpret this result as normal/abnormal. PLATELET COUNT (test code = 1015) 182 K/UL 130-400 ABSOLUTE NEUTROPHILS (test code = 1066) 4.42 K/UL 1.50-7.50 ABSOLUTE LYMPHOCYTES (test code = 1067) 1.17 K/UL 1.00-4.00 ABSOLUTE MONOCYTES (test code = 1068) 0.60 K/UL 0.20-1.00 ABSOLUTE EOSINOPHILS (test code = 1040) 0.16 K/UL 0.00-0.50 ABSOLUTE BASOPHILS (test code = 1069) 0.06 K/UL 0.00-0.20 ABS IMMATURE GRANULOCYTES (test code = 1020) 0.03 K/UL 0.00-0.10 ABS NUCLEATED RBCS (test code = 61943) 0.00 K/UL 0.00-0.11 COMPREHENSIVE METABOLIC [id number] 04:16:43* Test Item Value Reference Range Interpretation Comme nts GLUCOSE (test code = 2217) 91 MG/DL 70-99 BUN (test code = 2208) 22 MG/DL 8-23 CREATININE (test code = 2214) 0.68 MG/DL 0.80-1.40 L eGFR (2020 CKD-EPI) (test code = 31922) 95 ML/MIN/1.73 >60 CALC BUN/CREAT (test code = 2234) 32 RATIO 6-28 H SODIUM (test code = 2230) 140 MEQ/L 133-146 POTASSIUM (test code = 2227) 4.7 MEQ/L 3.5-5.4 CHLORIDE (test code = 2214) 102 MEQ/L 95-107 CARBON DIOXIDE (test code = 2205) 25 MEQ/L 19-31 CALCIUM (test code = 2208) 9.1 MG/DL 8.5-10.5 PROTEIN, TOTAL (test code = 2228) 7.2 G/DL 6.1-8.3 ALBUMIN (test code = 2200) 4.3 G/DL 3.5-5.2 CALC GLOBULIN (test code = 2239) 2.9 G/DL 1.9-3.7 CALC A/G RATIO (test code = 2233) 1.5 RATIO 1.0-2.6 BILIRUBIN, TOTAL (test code = 2206) 0.5 MG/DL See_Comment [Automated me ssage] The system which generated this result transmitted reference range: <=1.2. The reference range was not used to interpret this result as normal/abnormal. ALKALINE PHOSPHATASE (test code = 2203) 82 U/L 40-125 AST (test code = 2217) 19 U/L 9-50 ALT (test code = 2218) 15 U/L 5-50 LIPID [id number] 04:16:43* Test Item Value Reference Range Interpretation Comme nts CHOLESTEROL (test code = 2209) 265 MG/DL <200 H TRIGLYCERIDES (test code = 223) 273 MG/DL <150 H HDL CHOLESTEROL (test code = 222) 33 MG/DL >39 L CALC LDL CHOL (test code = 223) 183 MG/DL <100 H NOTE: CALCULATED LDL IS BASED ON YANCY-CAREY METHOD WHICHINCLUDES ADJUSTABLE TRIGLYCERIDE:VLDL CHOLESTEROL RATIO.THIS FACTOR VARIES BY MEASURED TRIGLYCERIDE AND NON-HDLCHOLESTEROL CONCENTRATIONS WITH INCREASED CALCULATED LDL SEENIN HIGHER TRIGLYCERIDE OR LOWER NON-HDL SPECIMENS. FOR MOREINFORMATION, SEE CLIENT ANNOUNCEMENT AT [email or web address] RATIO LDL/HDL (test code = 2238) 5.55 RATIO <3.55 H [id number] 03:13:28* Test Item Value Reference Range Interpretation Comme nts RPR RESULT (test code = 3501) NON-REACTIVE NON-REACTIVE RPR TITER (test code = 3500) NOT INDIC. TITER NOT INDIC. POCT URINALYSIS, [id number] 21:22:00* Test Item Value Reference Range Interpretation Comme nts POCT U SP GRAV (test code = 3255) 1.020 mg/dl 1.005-1.025 POCT PH U (test code = 3254) 5.0 mg/dl 5-8 POCT U LEUK EST (test code = 3263) NEGATIVE Negative - Negative POCT U NIT (test code = 3262) NEGATIVE Negative - Negati ve POCT U PROT (test code = 3259) NEGATIVE Negative - Negative POCT U GLU (test code = 3256) Negative - Negati ve POCT U KETONE (test code = 3258) NEGATIVE Negative - Negative POCT U UROBILI (test code = 3260) 0.2 mg/dl 0.2-1 POCT U BILI (test code = 3261) NEGATIVE Negative - Negative POCT U BLD (test code = 3257) NEGATIVE Negative - Negati ve POCT U COLOR (test code = 3266) YELLOW POCT U APPEAR (test code = 3267) CLEAR [facility] URINALYSIS, [id number] 21:22:00 * Test Item Value Reference Range Interpretation Comme nts POCT U SP GRAV (test code = 3255) 1.020 mg/dl 1.005-1.025 POCT PH U (test code = 3254) 5.0 mg/dl 5-8 POCT U LEUK EST (test code = 3263) NEGATIVE Negative - Negative POCT U NIT (test code = 3262) NEGATIVE Negative - Negati ve POCT U PROT (test code = 3259) NEGATIVE Negative - Negative POCT U GLU (test code = 3256) Negative - Negati ve POCT U KETONE (test code = 3258) NEGATIVE Negative - Negative POCT U UROBILI (test code = 3260) 0.2 mg/dl 0.2-1 POCT U BILI (test code = 3261) NEGATIVE Negative - Negative POCT U BLD (test code = 3257) NEGATIVE Negative - Negati ve POCT U COLOR (test code = 3266) YELLOW POCT U APPEAR (test code = 3267) CLEAR [facility] [id number] 05:24:00* Test Item Value Reference Range Interpretation Comme nts SODIUM (test code = NA) 138 MMOL/L 137-145 N POTASSIUM (test code = K) 4.8 MMOL/L 3.5-5.1 N CHLORIDE (test code = CL) 106 MMOL/L 98-107 N CARBON DIOXIDE (test code = CO2) 27 MMOL/L 22-30 N ANION GAP (test code = GAP) 10 MMOL/L 14-24 L GLUCOSE (test code = GLU) 101 MG/DL 74-106 N BLOOD UREA NITROGEN (test code = BUN) 22 MG/DL 9-20 H GLOMERULAR FILTRATION RATE (test code = GFR) > 60 Reporting units: ml/min/1.73 m2 (Modified MDRD Formula)Reference Range: > or = 60 ml/min/1.73 m2 CREATININE (test code = CREAT) 0.90 MG/DL 0.66-1.25 N CALCIUM (test code = CA) 8.6 MG/DL 8.4-10.2 N CBC W/AUTO [id number] 05:05:00* Test Item Value Reference Range Interpretation Comme nts WHITE BLOOD CELL (test code = WBC) 6.6 K/MM3 3.8-9.8 N RED BLOOD CELL (test code = RBC) 4.34 M/MM3 3.95-5.67 N HEMOGLOBIN (test code = HGB) 13.3 G/DL 12.4-16.7 N HEMATOCRIT (test code = HCT) 40.1 % 35.9-49.5 N MEAN CELL VOLUME (test code = MCV) 92 fL 81.7-96.1 N MEAN CELL HGB (test code = MCH) 30.6 pg 27.6-33.2 N MEAN CELL HGB CONCETRATION (test code = MCHC) 33.2 % 32.9-35.5 N RED CELL DISTRIBUTION WIDTH (test code = RDW) 12.8 % 12.1-15.2 N PLATELET COUNT (test code = PLT) 156 K/MM3 129-368 N MEAN PLATELET VOLUME (test c ode = MPV) 10.9 fl 7.4-10.4 H NEUTROPHIL % (test code = NT%) 69.4 % 43-75 N IMMATURE GRANULOCYTE % (test code = IG%) 0.3 % 0.0-2.0 N LYMPHOCYTE % (test code = LY%) 17.6 % 14-44 N MONOCYTE % (test code = MO%) 9.8 % 4-13 N EOSINOPHIL % (test code = EO%) 2.4 % 0-6 N BASOPHIL % (test code = BA%) 0.5 % 0-2 N NUCLEATED RBC % (test code = NRBC%) 0.0 % 0-1.0 N NEUTROPHIL # (test code = NT#) 4.61 K/mm3 2.0-7.6 N IMMATURE GRANULOCYTE # (test code = IG#) 0.02 x10 3/uL 0-0.03 N LYMPHOCYTE # (test code = LY#) 1.17 K/mm3 1.0-3.8 N MONOCYTE # (test code = MO#) 0.65 K/mm3 0.1-0.8 N EOSINOPHIL # (test code = EO#) 0.16 K/mm3 0.0-0.2 N BASOPHIL # (test code = BA#) 0.03 K/mm3 0.0-0.2 N NUCLEATED RBC # (test code = NRBC#) 0.00 K/mm3 0.0-0.1 N [id number] 08:28:00* Test Item Value Reference Range Interpretation Comme nts ACT-ISTAT (test code = ACTI) 213 SEC 74-137 H BASIC METABOLIC [id number] 07:20:00* Test Item Value Reference Range Interpretation Comme nts SODIUM (test code = NA) 141 MMOL/L 137-145 N POTASSIUM (test code = K) 5.2 MMOL/L 3.5-5.1 H CHLORIDE (test code = CL) 106 MMOL/L 98-107 N CARBON DIOXIDE (test code = CO2) 29 MMOL/L 22-30 N GLUCOSE (test code = GLU) 105 MG/DL 74-106 N BLOOD UREA NITROGEN (test code = BUN) 29 MG/DL 9-20 H GLOMERULAR FILTRATION RATE (test code = GFR) > 60 Reporting units: ml/min/1.73 m2 (Modified MDRD Formula)Reference Range: > or = 60 ml/min/1.73 m2 CREATININE (test code = CREAT) 0.80 MG/DL 0.66-1.25 N CALCIUM (test code = CA) 9.0 MG/DL 8.4-10.2 N LIPID PROFILE (CORONARY RISK)2018-11-17 07:20:00* Test Item Value Reference Range Interpretation Comme nts TRIGLYCERIDES (test code = TRIG) 99 MG/DL TRIGLYCERIDES REFERENCE RANGE:Normal: <150 mg/dLBorderline High: 150-199 mg/dLHigh: 200-499 mg/dLVery High: >=500 mg/dL CHOLESTEROL (test code = CHOL) 139 MG/DL <200 HDL CHOLESTEROL (test code = HDL) 36 MG/DL 40-59 L LIPOPROTEIN LDL (test code = LDL) 102 MG/DL 0-99 H OPTIMAL......... <100 mg/dLNEAR OPTIMAL/ABOVE OPTIMAL.........100-12 9 mg/dL BORDERLINE HIGH.........130-159 mg/dL HIGH.........160-189 mg/dL VERY HIGH.........>/= 190 mg/dL [id number] 07:20:00* Test Item Value Reference Range Interpretation Comme nts MAGNESIUM (test code = MAG) 2.5 MG/DL 1.6-2.3 H BASIC METABOLIC [id number] 07:09:00* Test Item Value Reference Range Interpretation Comme nts SODIUM (test code = NA) 141 MMOL/L 137-145 N POTASSIUM (test code = K) 5.2 MMOL/L 3.5-5.1 H CHLORIDE (test code = CL) 106 MMOL/L 98-107 N CARBON DIOXIDE (test code = CO2) 29 MMOL/L 22-30 N GLUCOSE (test code = GLU) 105 MG/DL 74-106 N BLOOD UREA NITROGEN (test code = BUN) 29 MG/DL 9-20 H GLOMERULAR FILTRATION RATE (test code = GFR) > 60 Reporting units: ml/min/1.73 m2 (Modified MDRD Formula)Reference Range: > or = 60 ml/min/1.73 m2 CREATININE (test code = CREAT) 0.80 MG/DL 0.66-1.25 N CALCIUM (test code = CA) 9.0 MG/DL 8.4-10.2 N LIPID PROFILE (CORONARY RISK)2018-11-17 07:09:00* Test Item Value Reference Range Interpretation Comme [facility] TRIGLYCERIDES (test code = TRIG) 99 MG/DL TRIGLYCERIDES REFERENCE RANGE:Normal: <150 mg/dLBorderline High: 150-199 mg/dLHigh: 200-499 mg/dLVery High: >=500 mg/dL CHOLESTEROL (test code = CHOL) 139 MG/DL <200 HDL CHOLESTEROL (test code = HDL) 36 MG/DL 40-59 L LIPOPROTEIN LDL (test code = LDL) MG/DL 0-99 [id number] 07:09:00* Test Item Value Reference Range Interpretation [facility] MAGNESIUM (test code = MAG) 2.5 MG/DL 1.6-2.3 H PROTHROMBIN [id number] 06:59:00* Test Item Value Reference Range Interpretation [facility] PROTHROMBIN TIME PATIENT (test code = PTP) 10.0 SECONDS 9.6-11.6 N INTERNATIONAL NORMAL RATIO (test code = INR) 0.9 0.8-1.1 N The INR is to be used only for monitoring oral anticoagulanttherap y. INDICATION INR VALUE -------1. Prophylaxis, deep venous thrombosis, including high risk surgery. 2.0 - 3.0 2. Prophylaxis, deep venous thrombosis, hip surgery, treatment for deep venous thrombosis or pulmonary prevention of systemic embolism in patients with valvular heart disease, atrial fibrillation, tissue heart valve, or acute myocardial infarction. 2.0 - 3.0 3. Mechanical prosthesis heart valves, recurrent systemic embolism. 3.0 - 4.5 PTT [id number] 06:59:00* Test Item Value Reference Range Interpretation [facility] PTT ACTIVATED (test code = APTT) 29.2 SECONDS 22.0-33.0 N CBC W/AUTO [id number] 06:46:00* Test Item Value Reference Range [facility]ation [facility] (test code = WBC) 7.1 K/MM3 3.8-9.8 N RED BLOOD CELL (test code = RBC) 4.77 M/MM3 3.95-5.67 N HEMOGLOBIN (test code = HGB) 14.8 G/DL 12.4-16.7 N HEMATOCRIT (test code = HCT) 44.1 % 35.9-49.5 N MEAN CELL VOLUME (test code = MCV) 93 fL 81.7-96.1 N MEAN CELL HGB (test code = MCH) 31.0 pg 27.6-33.2 N MEAN CELL HGB CONCETRATION (test code = MCHC) 33.6 % 32.9-35.5 N RED CELL DISTRIBUTION WIDTH (test code = RDW) 12.7 % 12.1-15.2 N PLATELET COUNT (test code = PLT) 189 K/MM3 129-368 N MEAN PLATELET VOLUME (test c ode = MPV) 11.2 fl 7.4-10.4 H NEUTROPHIL % (test code = NT%) 67.0 % 43-75 N IMMATURE GRANULOCYTE % (test code = IG%) 0.1 % 0.0-2.0 N LYMPHOCYTE % (test code = LY%) 20.1 % 14-44 N MONOCYTE % (test code = MO%) 10.4 % 4-13 N EOSINOPHIL % (test code = EO%) 1.7 % 0-6 N BASOPHIL % (test code = BA%) 0.7 % 0-2 N NUCLEATED RBC % (test code = NRBC%) 0.0 % 0-1.0 N NEUTROPHIL # (test code = NT#) 4.75 K/mm3 2.0-7.6 N IMMATURE GRANULOCYTE # (test code = IG#) 0.01 x10 3/uL 0-0.03 N LYMPHOCYTE # (test code = LY#) 1.43 K/mm3 1.0-3.8 N MONOCYTE # (test code = MO#) 0.74 K/mm3 0.1-0.8 N EOSINOPHIL # (test code = EO#) 0.12 K/mm3 0.0-0.2 N BASOPHIL # (test code = BA#) 0.05 K/mm3 0.0-0.2 N NUCLEATED RBC # (test code = NRBC#) 0.00 K/mm3 0.0-0.1 N
[2024-04-15] MEDS ORDERED: NA CHLORIDE 0.9% 500 ML ONE (15:20)
--- NOTE | 2024-04-15 15:29 | RAD REPORT ---
Procedure: Chest Single View HISTORY: Chest pain COMPARISON: March 28, 2024 FINDINGS: The lungs appear clear of acute infiltrate. No significant pleural effusion noted. The heart is normal size. IMPRESSION: No acute abnormality is displayed.
[2024-04-15 15:35] LABS: Absolute Eosinophils 0.1 K/uL (0-0.5); Absolute Lymphocytes (CBC) 1.1 K/uL (0.7-4.9); Absolute Monocytes 0.5 K/uL (0.1-1.3); Absolute Neutrophil 4.6 K/uL (1.8-8.0); Basophils % 0.6 % (0-1.3); Eosinophils % 1.5 % (0-4.4); Hematocrit 36.9 % (39.6-49.0); Hemoglobin 12.2 g/dL (13.6-17.9); Lymphocytes % 16.6 % (15.3-44.8); MCHC 33.1 g/dL (32.0-36.0); MCV 93.9 fL (80-100); MPV 9.1 fL (7.6-11.3); Monocytes % 8.5 % (3.3-12.3); Neutrophils % 72.8 % (41.7-73.7); Platelets 189 thou/uL (152-406); RBC Red Blood Cell Count 3.93 M/uL (4.33-5.43); Red Cell Distribution Width 13.5 % (12.1-15.2)
[2024-04-15 15:36] LABS: Protime INR 0.98
[2024-04-15 15:51] LABS: ALT/SGPT 23 U/L (16-61); AST/SGOT 28 U/L (15-37); Albumin 3.1 g/dL (3.4-5.0); Albumin/Globulin Ratio 0.8 (1.1-1.8); Alkaline Phosphatase 79 U/L (45-117); Anion Gap 8.1 mEq/L (5.0-15.0); BUN Blood Urea Nitrogen 20 mg/dL (7-18); Bicarbonate 28 mEq/L (21-32); Bilirubin Direct < 0.2 mg/dL (0-0.2); Bilirubin Indirect, Calculated 0.4 mg/dL (0.2-0.8); Bilirubin Total 0.6 mg/dL (0.2-1.0); Globulin 3.7 g/dL (2.3-3.5); Glomerular Filtration Rate 90 ml/min (=/>90); Glucose Level 90 mg/dL (74-106); Lipase 19 U/L (13-75); Magnesium 2.3 mg/dL (1.6-2.4); NT PRO-BNP 781 pg/mL (<450); Potassium 4.1 mEq/L (3.5-5.1); Protein, Total 6.8 g/dL (6.4-8.2); Sodium Level 139 mEq/L (136-145)
[2024-04-15 16:13] LABS: Sqamous Epithelial None Seen /HPF (None Seen); Urine Bacteria None Seen /HPF (<20); Urine Culture Reflex Order NOT NEEDED; Urine Microscopic Reflex YN ORDER UMIC; Urine RBC <5 /HPF (None Seen); Urine WBC None Seen /HPF (<5)
[2024-04-15 16:17] LABS: Urine Bilirubin Negative (Negative); Urine Blood Negative (Negative); Urine Clarity Turbid (Clear); Urine Color Colorless (Yellow); Urine Glucose Negative (Negative); Urine Ketones Negative (Negative); Urine Protein Negative (Negative); Urine Urobilinogen Normal (Normal); Urine pH 6.5 (5.0-7.0)
[2024-04-15 16:18] LABS: Urine Nitrite Negative (Negative)
--- NOTE | 2024-04-15 17:49 | ER ---
Nurse's Notes [facility] Name: Claudy Cline Age: 83 yrs Sex: Male : 1940 Arrival Date: 04/15/2024 Time: 14:15 Bed 11 Private MD: Diagnosis: Chest pain, unspecified;Ocular pain, unspecified eye-left subconjunctival hemorrhage, left greater than right Presentation: 04/15 14:55 Chief complaint: Intermittent dizziness, left sided chest pain, and bruising on arms hb that started yesterday. Coronavirus screen: At this time, the client does not indicate any symptoms associated with coronavirus-19. Ebola Screen: No symptoms or risks identified at this time. Initial Sepsis Screen: Does the patient meet any 2 criteria? No. Patient's initial sepsis screen is negative. Does the patient have a suspected source of infection? No. Patient's initial sepsis screen is negative. Risk Assessment: Do you want to hurt yourself or someone else? Patient reports no desire to harm self or others. Onset of symptoms was April 14, 2024. 14:55 Method Of Arrival: Ambulatory hb 14:55 Acuity: JOSE RAMON 3 hb Historical: - Allergies: 14:57 No Known Allergies; hb - PMHx: 14:57 Hypertension; hb - PSHx: 14:57 Heart Stents; Hand - Right; Back; hb - Immunization history:: Adult Immunizations up to date. - Infectious Disease History:: Denies. - Social history:: Smoking status: Patient denies any tobacco usage or history of. Screenin:00 [facility] ED Fall Risk Assessment (Adult) History of falling in the last 3 months, rs5 including since admission No falls in past 3 months (0 pts) Confusion or Disorientation No (0 pts) Intoxicated or Sedated No (0 pts) Impaired Gait No (0 pts) Mobility Assist Device Used No (0 pt) Altered Elimination No (0 pt) Score/Fall Risk Level 0 - 2 = Low Risk Oriented to surroundings, Maintained a safe environment. [facility] ED Fall Risk Assessment (Adult). Abuse screen: Denies threats or abuse. Nutritional screening: No deficits noted. Tuberculosis screening: No symptoms or risk factors identified. 21:16 Exposure risk/Travel Screening: None identified. mt4 Assessment: 15:00 General: Appears uncomfortable, Behavior is calm, cooperative. Pain: Pain does not rs5 radiate. Pain currently is 3 out of 10 on a pain scale. Quality of pain is described as aching, Pain began Is intermittent. Neuro: Level of Consciousness is awake, alert, obeys commands, Oriented to person, place, time, situation, Reports dizziness. Cardiovascular: Patient's skin is warm and dry. Respiratory: Airway is patent Respiratory effort is even, unlabored, Respiratory pattern is regular, symmetrical. GI: Abdomen is round non-distended, Abd is soft and non tender X 4 quads. : No signs and/or symptoms were reported regarding the genitourinary system. EENT: redness noted to left eye. 15:00 Derm: Skin is intact, Skin is pink, warm \T\ dry. rs5 16:15 Reassessment: Patient and/or family updated on plan of care and expected duration. Pain rs5 level reassessed. Patient is alert, oriented x 3, equal unlabored respirations, skin warm/dry/pink. 17:35 Reassessment: Patient and/or family updated on plan of care and expected duration. Pain rs5 level reassessed. Patient is alert, oriented x 3, equal unlabored respirations, skin warm/dry/pink. 18:41 Reassessment: Patient and/or family updated on plan of care and expected duration. Pain rs5 level reassessed. Patient is alert, oriented x 3, equal unlabored respirations, skin warm/dry/pink. 21:15 Reassessment: notified 2nd floor, spoke with Mika and notified that patient is being mt4 brought up to 219. 21:16 General: Appears in no apparent distress. comfortable, Behavior is calm, cooperative, mt4 appropriate for age. Pain: Denies pain. Neuro: Level of Consciousness is awake, alert, obeys commands, Oriented to person, place, time, situation, Video Engineer are equal bilaterally. Cardiovascular: Capillary refill < 3 seconds. Respiratory: Airway is patent. Musculoskeletal: Range of motion: intact in all extremities. Vital Signs: 14:55 BP 162 / 74; Pulse 65; Resp 16; Temp 97.8; Pulse Ox 99% on R/A; Weight 74.39 kg; Height hb 5 ft. 8 in. ; Pain 0/10; 15:30 BP 145 / 81; Pulse 66; Resp 16; Pulse Ox 99% on R/A; rs5 17:36 BP 155 / 77; Pulse 71; Resp 17; Pulse Ox 98% on R/A; rs5 18:22 BP 147 / 84; Pulse 69; Resp 17; Pulse Ox 98% on R/A; rs5 19:10 BP 161 / 66; Pulse 60; Resp 15 S; Temp 98.4(O); Pulse Ox 100% on R/A; Pain 0/10; mt4 21:15 BP 137 / 52; Pulse 57; Resp 16; Pulse Ox 97% on R/A; Pain 0/10; mt4 14:55 Body Mass Index 24.94 (74.39 kg, 172.72 cm) hb 14:55 Pain Scale: Adult hb 19:10 Pain Scale: Adult mt4 21:15 Pain Scale: Adult mt4 Shelia Coma Score: 21:16 Eye Response: spontaneous(4). Motor Response: obeys commands(6). Verbal Response: mt4 oriented(5). Total: 15. ED Course: 14:18 Patient arrived in ED. im 14:32 Joseph Meza MD is Attending Physician. manuela 14:57 Triage completed. hb 15:00 Inserted saline lock: 22 gauge in left antecubital area, using aseptic technique. Blood rs5 collected. Flushed with 10 mL NS. 15:00 Patient maintains SpO2 saturation greater than 95% on room air. rs5 15:05 Arm band placed on right wrist. rs5 15:05 Patient has correct armband on for positive identification. Placed in gown. Bed in low rs5 position. Call light in reach. Side rails up X2. Client placed on continuous cardiac and pulse oximetry monitoring. NIBP monitoring applied. telemetry monitor on. Pulse ox on. 15:16 XRAY Chest (1 view) In Process Unspecified. EDMS 15:17 Mark Cervantes, GERRI is Primary Nurse. rs5 17:46 Joey Johnson MD is Hospitalizing Provider. manuela 19:11 No provider procedures requiring assistance completed. rs5 21:16 Provided Education on: admit education . Client placed on continuous cardiac and pulse mt4 oximetry monitoring. NIBP monitoring applied. telemetry monitor on. Pulse ox on. Assisted with urinal. 21:16 Patient admitted, IV remains in place. mt4 Administered Medications: 14:50 Drug: NS 0.9% IV 500 ml 500 ml IV at 125 ml/hr once Volume: 500 ml; Route: IV; Rate: rs5 125 ml/hr; Site: left antecubital; 17:20 Follow up: Response: No adverse reaction; IV Status: Completed infusion; IV Intake: rs5 500ml 18:00 Drug: Aspirin PO Chewable Tablet 81 mg PO once Route: PO; rs5 19:12 Follow up: Response: No adverse reaction rs5 18:00 Drug: Famotidine IVP 20 mg IVP once; dilute with 10 mL 0.9% NaCl; give over 2 minutes rs5 Route: IVP; Site: left antecubital; 18:20 Follow up: Response: No adverse reaction rs5 Medication: 17:36 VIS not applicable for this client. rs5 Intake: 17:20 IV: 500ml; Total: 500ml. rs5 Outcome: 17:48 Decision to Hospitalize by Provider. manuela 21:16 Admitted to Med/surg accompanied by tech, room 219, with chart, Report called to mika [facility] 21:16 Condition: stable 21:16 Instructed on the need for admit, 21:18 Patient left the ED. mt4 Signatures: Dispatcher [employer] EDJoseph Grider MD MD cha Baxter, Heather, GERRI TALLEY Mark Cervantes RN RN rs5 Anitha García Molinec, RN RN mt4 Corrections: (The following items were deleted from the chart) 19:11 19:10 BP 147 / 84; Pulse 69bpm; Resp 17bpm; Pulse Ox 98% RA; rs5 rs5
--- NOTE | 2024-04-15 17:49 | EDPHYS ---
Physician Documentation [facility] Name: Claudy Cline Age: 83 yrs Sex: Male : 1940 Arrival Date: 04/15/2024 Time: 14:15 Bed 11 Private MD: ED Physician Joseph Meza HPI: 04/15 17:41 This 83 yrs old Male presents to ER via Ambulatory with complaints of Eye manuela Problem, Chest Pain. 17:41 The patient is experiencing left greater than right travis. Onset: The symptoms/episode manuela began/occurred 1 day(s) ago. Duration: the symptoms are intermittent. Aggravated by nothing. Alleviated by nothing. Historical: - Allergies: 14:57 No Known Allergies; hb - PMHx: 14:57 Hypertension; hb - PSHx: 14:57 Heart Stents; Hand - Right; Back; hb - Immunization history:: Adult Immunizations up to date. - Infectious Disease History:: Denies. - Social history:: Smoking status: Patient denies any tobacco usage or history of. ROS: 17:42 Constitutional: Negative for fever, chills, and weight loss, ENT: Negative for injury, manulea pain, and discharge, Neck: Negative for injury, pain, and swelling, Respiratory: Negative for shortness of breath, cough, wheezing, and pleuritic chest pain, Abdomen/GI: Negative for abdominal pain, nausea, vomiting, diarrhea, and constipation, Back: Negative for injury and pain, : Negative for injury, bleeding, discharge, and swelling, MS/Extremity: Negative for injury and deformity, Skin: Negative for injury, rash, and discoloration, Neuro: Negative for headache, weakness, numbness, tingling, and seizure, Psych: Negative for depression, anxiety, suicide ideation, homicidal ideation, and hallucinations, Allergy/Immunology: Negative for hives, rash, and allergies, Endocrine: Negative for neck swelling, polydipsia, polyuria, polyphagia, and marked weight changes, Hematologic/Lymphatic: Negative for swollen nodes, abnormal bleeding, and unusual bruising, 17:42 Eyes: Positive for redness, travis left, 17:42 Cardiovascular: Positive for chest pain, of the chest, Exam: 17:42 Constitutional: This is a well developed, well nourished patient who is awake, alert, manuela and in no acute distress. Head/Face: Normocephalic, atraumatic. ENT: Nares patent. No nasal discharge, no septal abnormalities noted. Tympanic membranes are normal and external auditory canals are clear. Oropharynx with no redness, swelling, or masses, exudates, or evidence of obstruction, uvula midline. Mucous membranes moist. Neck: Trachea midline, no thyromegaly or masses palpated, and no cervical lymphadenopathy. Supple, full range of motion without nuchal rigidity, or vertebral point tenderness. No Meningismus. Chest/axilla: Normal chest wall appearance and motion. Nontender with no deformity. No lesions are appreciated. Cardiovascular: Regular rate and rhythm with a normal S1 and S2. No gallops, murmurs, or rubs. Normal PMI, no JVD. No pulse deficits. Respiratory: Lungs have equal breath sounds bilaterally, clear to auscultation and percussion. No rales, rhonchi or wheezes noted. No increased work of breathing, no retractions or nasal flaring. Abdomen/GI: Soft, non-tender, with normal bowel sounds. No distension or tympany. No guarding or rebound. No evidence of tenderness throughout. Back: No spinal tenderness. No costovertebral tenderness. Full range of motion. Male : Normal genitalia with no discharge or lesions. Skin: Warm, dry with normal turgor. Normal color with no rashes, no lesions, and no evidence of cellulitis. MS/ Extremity: Pulses equal, no cyanosis. Neurovascular intact. Full, normal range of motion., bilateral aka Neuro: Awake and alert, GCS 15, oriented to person, place, time, and situation. Cranial nerves II-XII grossly intact. Motor strength 5/5 in all extremities. Sensory grossly intact. Cerebellar exam normal. Normal gait. Psych: Awake, alert, with orientation to person, place and time. Behavior, mood, and affect are within normal limits. 17:42 ECG was reviewed by the Attending Physician. 17:48 Musculoskeletal/extremity: DVT Exam: No signs of deep vein thrombosis. no pain, no manuela swelling, no tenderness, negative Homans' sign noted on exam, no appreciated bluish discoloration, no erythema, no increased warmth, Vital Signs: 14:55 BP 162 / 74; Pulse 65; Resp 16; Temp 97.8; Pulse Ox 99% on R/A; Weight 74.39 kg; Height hb 5 ft. 8 in. ; Pain 0/10; 15:30 BP 145 / 81; Pulse 66; Resp 16; Pulse Ox 99% on R/A; rs5 17:36 BP 155 / 77; Pulse 71; Resp 17; Pulse Ox 98% on R/A; rs5 18:22 BP 147 / 84; Pulse 69; Resp 17; Pulse Ox 98% on R/A; rs5 19:10 BP 161 / 66; Pulse 60; Resp 15 S; Temp 98.4(O); Pulse Ox 100% on R/A; Pain 0/10; mt4 21:15 BP 137 / 52; Pulse 57; Resp 16; Pulse Ox 97% on R/A; Pain 0/10; mt4 14:55 Body Mass Index 24.94 (74.39 kg, 172.72 cm) hb 14:55 Pain Scale: Adult hb 19:10 Pain Scale: Adult mt4 21:15 Pain Scale: Adult mt4 [place] Coma Score: 21:16 Eye Response: spontaneous(4). Motor Response: obeys commands(6). Verbal Response: mt4 oriented(5). Total: 15. MDM: 14:32 Medical Screening Exam initiated manuela 17:44 Differential diagnosis: Corneal abrasion of abnormal EKG, acute myocardial infarction, manuela acute pericarditis, coronary artery disease chest wall pain, gastritis, hiatal hernia, pancreatitis, peptic ulcer disease, pleurisy, pneumonia, pulmonary embolus, stable angina, unstable angina. HEART Score: History: Slightly Suspicious (0), ECG: Normal (0), Age: > or = 65 years (2), Risk Factors: > or = 3 Risk factors for atherosclerotic disease (2), [Hypercholesterolemia] [Hypertension] [+ Family HX] Troponin: < or = 1 x Normal Limit (0). The patient was given aspirin in the Emergency Department. GOPAL Risk Score: 1 - patient's age is greater or equal to 65 years, 1 - Three or more CAD risk factors, 1- Known CAD, 1 - ASA use in past 7 days, 1 - Recent [<24hrs] Severe Angina, TOTAL SCORE = 5. Data reviewed: vital signs, nurses notes, lab test result(s), EKG, radiologic studies, CT scan, plain films. Consideration of Admission/Observation Escalation of care including admission/observation considered. I considered the following discharge prescriptions or medication management in the emergency department Medications were administered in the Emergency Department. See MAR. Independent interpretation of the following test(s) in the Emergency Department EKG: See my EKG interpretation above. Test considered but Not performed: Ultrasound no 2 d echo. Historians other than the Patient: Spouse/Significant Other: and daughter. Care significantly affected by the following chronic conditions: Hypertension. 04/15 14:33 Order name: Basic Metabolic Panel; Complete Time: 17:33 [facility] 04/15 14:33 Order name: CBC with Diff; Complete Time: 17:33 [facility] 04/15 14:33 Order name: LFT's; Complete Time: 17:33 [facility] 04/15 14:33 Order name: Magnesium; Complete Time: 17:33 [facility] 04/15 14:33 Order name: NT PRO-BNP; Complete Time: 17:33 [facility] 04/15 14:33 Order name: PT-INR; Complete Time: 17:33 [facility] 04/15 14:33 Order name: Troponin HS; Complete Time: 17:34 [facility] 04/15 14:33 Order name: Lipase; Complete Time: 17:34 [facility] 04/15 14:33 Order name: Urinalysis w/ reflexes; Complete Time: 17:33 [facility] 04/15 19:32 Order name: Urinalysis w/ reflexes [facility] 04/15 19:32 Order name: Troponin High Sensitivity [facility] 04/15 19:32 Order name: Troponin High Sensitivity [facility] 04/15 19:32 Order name: Troponin High Sensitivity [facility] 04/15 19:32 Order name: Troponin High Sensitivity [facility] 04/15 19:32 Order name: CBC with Automated Diff [facility] 04/15 19:32 Order name: Comprehensive Metabolic Panel [facility] 04/15 19:32 Order name: Magnesium [facility] 04/15 19:32 Order name: NT PRO-BNP [facility] 04/15 19:32 Order name: Phosphorus [facility] 04/15 19:32 Order name: Thyroid Stimulating Hormone [facility] 04/15 14:33 Order name: XRAY Chest (1 view); Complete Time: 17:34 [facility] 04/15 14:33 Order name: EKG; Complete Time: 14:34 [facility] 04/15 19:32 Order name: CONS Physician Consult [facility] 04/15 14:33 Order name: Cardiac monitoring; Complete Time: 16:15 [facility] 04/15 14:33 Order name: EKG - Nurse/Tech; Complete Time: 16:15 [facility] 04/15 14:33 Order name: IV Saline Lock; Complete Time: 16:15 [facility] 04/15 14:33 Order name: Labs collected and sent; Complete Time: 16:15 [facility] 04/15 14:33 Order name: O2 Per Protocol; Complete Time: 16:15 [facility] 04/15 14:33 Order name: O2 Sat Monitoring; Complete Time: 16:15 [facility] EC:42 Rate is 59 beats/min. Rhythm is regular. QRS [place] is Normal. SD interval is normal. QRS manuela interval is normal. QT interval is normal. No Q waves. T waves are Normal. No ST changes noted. Clinical impression: Normal ECG and No evidence of ischemia. Interpreted by me. Reviewed by me. Administered Medications: 14:50 Drug: NS 0.9% IV 500 ml 500 ml IV at 125 ml/hr once Volume: 500 ml; Route: IV; Rate: rs5 125 ml/hr; Site: left antecubital; 17:20 Follow up: Response: No adverse reaction; IV Status: Completed infusion; IV Intake: rs5 500ml 18:00 Drug: Aspirin PO Chewable Tablet 81 mg PO once Route: PO; rs5 19:12 Follow up: Response: No adverse reaction rs5 18:00 Drug: Famotidine IVP 20 mg IVP once; dilute with 10 mL 0.9% NaCl; give over 2 minutes rs5 Route: IVP; Site: left antecubital; 18:20 Follow up: Response: No adverse reaction rs5 Disposition Summary: 04/15/24 17:48 Hospitalization Ordered Notes: Hospitalization Status: Observation manuela Provider: Joey Johnson cha Location: Telemetry/MedSurg (observation) manuela Condition: Fair manuela Problem: new manuela Symptoms: have improved manuela Bed/Room Type: Standard manuela Room Assignment: 219(04/15/24 20:24) rv1 Diagnosis - Chest pain, unspecified manuela - Ocular pain, unspecified eye - left subconjunctival hemorrhage, left greater than manuela right Discharge Instructions: - Discharge Summary Sheet bc6 Forms: - Medication Reconciliation Form manuela - SBAR form manuela - Leadership Thank You Letter manuela - Patient Portal Instructions bc6 Signatures: Dispatcher [employer] EDJoseph Grider MD MD cha Baxter, Heather, RN RN Savi Davis rv1 Mark Cervantes RN RN rs5 Corrections: (The following items were deleted from the chart) 20:24 17:48 manuela rv1
[2024-04-15] MEDS ORDERED: ASPIRIN 81 MG CHEWABLE TABLET ONE (18:40)
[2024-04-15] MEDS ORDERED: FAMOTIDINE 20 MG/2 ML VIAL IV ONE (18:40)
[2024-04-15] MEDS ORDERED: ACETAMINOPHEN 325 MG TABLET PO PRN (19:25)
--- NOTE | 2024-04-15 19:41 | P.HP ---
Certification for Inpatient Patient admitted to: Observation With expected LOS: <2 Midnights <Mora Leigh - Last Filed: 04/15/24 19:33> Patient History Date of Service: 04/15/24 Reason for admission: Chest pain, eye pain History of Present Illness: 83-year-old man with a past medical history significant for CAD s/p left heart catheterization (03/29/24), HTN, and HDL presented to the emergency room com plaining of chest pain x 1 day and eye pain that began earlier today. The patient states he began having chest pain yesterday. He describes this chest pain as substernal, without radiation, and of an aching quality. He states his chest pain is present at rest. Also, the patient states he woke up this morning with a left eye that appeared "bloody". He denies recent eye trauma, and falls. The patient states that since he awoke this morning he believes his left eye is now more "red", and his right eye is now slightly red. The patient has been taking Brilinta since his recent heart stent procedure. Also, the patient states that earlier today he had blurry vision in both eyes and mild eye pain that has now resolved. He denies any visual impairments at this time. The patient also denies cough, urinary symptoms, and dyspnea. Home medications list reviewed: Yes - Past Medical/Surgical History Diabetic: No -: CAD s/p left heart catheterization -: HDL -: HTN -: Had surgery x 2 - Family History Father -: Heart disease Mother -: Hypertension - Social History Smoking Status: Never smoker Alcohol use: No <Mora Leigh - Last Filed: 04/15/24 19:33> Date of Service: 04/15/24 <Carlos Cordova - Last Filed: 04/15/24 23:36> Allergies No Known Allergies Allergy (Verified 03/28/24 13:12) Home Medications: Aspirin [Aspirin Regimen] 81 mg PO DAILY 10/03/22 Calcium Carbonate [Calcium] 600 mg PO DAILY 10/03/22 Cinnamon Bark [Cinnamon] 2 tab PO DAILY 10/03/22 Magnesium Chloride [Slow-Mag] 64 mg PO BID 10/03/22 Valsartan 320 mg PO DAILY 10/03/22 Zinc Amino Acid Chelate [Zinc] 50 mg PO DAILY 10/03/22 Ascorbic Acid [Vitamin C] 500 mg PO DAILY 01/02/23 Atorvastatin Calcium [Lipitor] 40 mg PO DAILY 01/30/23 Cholecalciferol (Vitamin D3) [Vitamin D3] 125 mcg PO DAILY 01/30/23 Vitamin E (Dl,Tocopheryl Acet) [Vitamin E] 1 tab PO DAILY 03/31/23 Ticagrelor [Brilinta] 90 mg PO BID 04/15/24 Review of Systems Eyes: Pain (Mild eye pain bilaterally), Redness (Left eye worse than right eye), Other (Mild edema bilaterally) Cardiovascular: Chest Pain <Leigh,Mora Q - Last Filed: 04/15/24 19:33> Physical Examination - Vital Signs Temperature: 97.8 F Blood Pressure: 160/74 Pulse: 67 Respirations: 18 Pulse Ox (%): 100 (On room air) - Physical Exam General: Alert, Oriented x3 HEENT: Atraumatic, Normocephalic, Other (Well-healed scar noted on top of head) Neck: JVD not distended Respiratory: Clear to auscultation bilaterally Cardiovascular: No edema, Regular rate/rhythm, No gallops, No rubs, No murmurs Gastrointestinal: Normal bowel sounds, Non-distended, No tenderness Musculoskeletal: No swelling, No erythema, No tenderness, No warmth Integumentary: Other (Multiple bruising noted on all extremities.) Neurological: Normal speech, Normal strength at 5/5 x4 extr, Sensation intact - Studies Laboratory Data (last 24 hrs) 04/15/24 04/15/24 04/15/24 15:18 15:18 15:18 WBC 6.40 Hgb 12.2 L Hct 36.9 L Plt Count 189 PT 11.0 INR 0.98 Sodium 139 Potassium 4.1 BUN 20 H Creatinine 0.75 Glucose 90 Magnesium 2.3 Total Bilirubin 0.6 AST 28 ALT 23 Alkaline Phosphatase 79 Lipase 19 <Leigh,Mora Q - Last Filed: 04/15/24 19:33> - Studies Laboratory Data (last 24 hrs) 04/15/24 04/15/24 04/15/24 15:18 15:18 15:18 WBC 6.40 Hgb 12.2 L Hct 36.9 L Plt Count 189 PT 11.0 INR 0.98 Sodium 139 Potassium 4.1 BUN 20 H Creatinine 0.75 Glucose 90 Magnesium 2.3 Total Bilirubin 0.6 AST 28 ALT 23 Alkaline Phosphatase 79 Lipase 19 <Carlos Cordova - Last Filed: 04/15/24 23:36> Assessment and Plan - Problems (Diagnosis) (1) Chest pain Current Visit: Yes Status: Acute (2) Eye pain Current Visit: Yes Status: Acute (3) HTN (hypertension) Current Visit: Yes Status: Acute (4) CAD (coronary artery disease) Current Visit: Yes Status: Acute (5) Dyslipidemia Current Visit: Yes Status: Acute - Plan Chest pain: Admit to observation Telemetry ordered Cardiology consulted Troponin ordered to trend Resumed high-dose statin home medications Continue with Brilinta, ASA CAD: 03/29/2024-left heart catheterization. Recommendations to continue ASA, Brilinta, and high-dose statin. Also, staged PCI of OM in 4 to 6 weeks. 03/28/24 echocardiogram performed BNP, and other labs ordered to trend Eye pain: Artificial tears as needed recommended by ED 20/20 vision in both eyes If change in vision, worsening proptosis of eyes, or increased bleeding noted in eyes, will initiate transfer for ophthalmology HTN: Resumed home medication HDL: Resumed home medication - Advance Directives Does patient have a Living Will: No Does patient have a Durable POA for Healthcare: No <Mora Leigh - Last Filed: 04/15/24 19:33> - Plan Reviewed case with TOBY Leigh Patient presented with left eye pain and progressively worsening redness of eye - consistent with subconjunctival hemorrhage. Noticed when he woke up. Denied trauma. Initially had blurred vision briefly when woke up, but resolved, and vision has remained normal. Unclear etiology, however risk of this increased since PCI done a few weeks ago and is on DAPT now. Initially concerned giving the progressive nature and ocular pain with admitting patient without opthalmology evaluation, however ED physician reportedly spoke with ophtho over the phone and described the appearance. He sates he was told this patient did not required any emergent ophtho eval and can be admitted here without ophtho backup. treatment plan as noted above. Closely monitor eye for vision changes or ptosis cardio consulted, trend trops patient is <4 weeks s/p PCI, need to continue brilinta '''''ddddddddddddddddddddddddddddddddddddddddddddddddddddddddddddddddddddddddddd ddddddddddddddddddddddddddddddddddddddddddddd dddddddddddddddddddddddddddddddddddddddddddddddddddddddddddddddddddddddddddddddd dddddddddddddddddddddddddddddddddddddddddddddddddddddddddddddddddddddddddddddddd dddddddddddddddddddddddddddddddddddddddd dddddddddddddddddddddddddddddddddddddddddddddddddddddddddddddddddddddddddddddddd dddddddddddddddddddddddddddddddddddddddddddddddddddddddddddddddddddddddddddddddd dddddddddddddddddddddddddddddddddddddddd dddddddddddddddddddddddddddddddddddddddddddddddddddddddddddddddddddddddddddddddd dddddddddddddddddddddddddddddddddddddddddddddddddddddddddddddddddddddddddddddddd dddddddddddddddddddddddddddddddddddddddd dddddddddddddddddddddddddddddddddddddddddddddddddddddddddddddddddddddddddddddddd dddddddddddddddddddddddddddddddddddddddddddddddddddddddddddddddddddddddddddddddd dddddddddddddddddddddddddddddddddddddddd dddddddddddddddddddddddddddddddddddddddddddddddddddddddddddddddddddddddddddddddd dddddddddddddddddddddddddddddddddddddddddddddddddddddddddddddddddddddddddddddddd dddddddddddddddddddddddddddddddddddddddd dddddddddddddddddddddddddddddddddddddddddddddddddddddddddddddddddddddddddddddddd dddddddddddddddddddddddddddddddddddddddddddddddddddddddddddddddddddddddddddddddd dddddddddddddddddddddddddddddddddddddddd dddddddddddddddddddddddddddddddddddddddddddddddddddddddddddddddddddddddddddddddd dddddddddddddddddddddddddddddddddddddddddddddddddddddddddddddddddddddddddddddddd dddddddddddddddddddddddddddddddddddddddd dddddddddddddddddddddddddddddddddddddddddddddddddddddddddddddddddddddddddddddddd dddddddddddddddddddddddddddddddddddddddddddddddddddddddddddddddddddddddddddddddd dddddddddddddddddddddddddddddddddddddddd dddddddddddddddddddddddddddddddddddddddddddddddddddddddddddddddddddddddddddddddd dddddddddddddddddddddddddddddddddddddddddddddddddddddddddddddddddddddddddddddddd dddddddddddddddddddddddddddddddddddddddd dddddddddddddddddddddddddddddddddddddddddddddddddddddddddddddddddddddddddddddddd dddddddddddddddddddddddddddddddddddddddddddddddddddddddddddddddddddddddddddddddd dddddddddddddddddddddddddddddddddddddddd dddddddddddddddddddddddddddddddddddddddddddddddddddddddddddddddddddddddddddddddd dddddddddddddddddddddddddddddddddddddddddddddddddddddddddddddddddddddddddddddddd dddddddddddddddddddddddddddddddddddddddd dddddddddddddddddddddddddddddddddddddddddddddddddddddddddddddddddddddddddddddddd dddddddddddddddddddddddddddddddddddddddddddddddddddddddddddddddddddddddddddddddd dddddddddddddddddddddddddddddddddddddddd dddddddddddddddddddddddddddddddddddddddddddddddddddddddddddddddddddddddddddddddd dddddddddddddddddddddddddddddddddddddddddddddddddddddddddddddddddddddddddddddddd dddddddddddddddddddddddddddddddddddddddd dddddddddddddddddddddddddddddddddddddddddddddddddddddddddddddddddddddddddddddddd dddddddddddddddddddddddddddddddddddddddddddddddddddddddddddddddddddddddddddddddd dddddddddddddddddddddddddddddddddddddddd dddddddddddddddddddddddddddddddddddddddddddddddddddddddddddddddddddddddddddddddd dddddddddddddddddddddddddddddddddddddddddddddddddddddddddddddddddddddddddddddddd dddddddddddddddddddddddddddddddddddddddd dddddddddddddddddddddddddddddddddddddddddddddddddddddddddddddddddddddddddddddddd dddddddddddddddddddddddddddddddddddddddddddddddddddddddddddddddddddddddddddddddd dddddddddddddddddddddddddddddddddddddddd dddddddddddddddddddddddddddddddddddddddddddddddddddddddddddddddddddddddddddddddd dddddddddddddddddddddddddddddddddddddddddddddddddddddddddddddddddddddddddddddddd dddddddddddddddddddddddddddddddddddddddd dddddddddddddddddddddddddddddddddddddddddddddddddddddddddddddddddddddddddddddddd dddddddddddddddddddddddddddddddddddddddddddddddddddddddddddddddddddddddddddddddd dddddddddddddddddddddddddddddddddddddddd dddddddddddddddddddddddddddddddddddddddddddddddddddddddddddddddddddddddddddddddd dddddddddddddddddddddddddddddddddddddddddddddddddddddddddddddddddddddddddddddddd dddddddddddddddddddddddddddddddddddddddd dddddddddddddddddddddddddddddddddddddddddddddddddddddddddddddddddddddddddddddddd dddddddddddddddddddddddddddddddddddddddddddddddddddddddddddddddddddddddddddddddd dddddddddddddddddddddddddddddddddddddddd dddddddddddddddddddddddddddddddddddddddddddddddddddddddddddddddddddddddddddddddd dddddddddddddddddddddddddddddddddddddddddddddddddddddddddddddddddddddddddddddddd dddddddddddddddddddddddddddddddddddddddd dddddddddddddddddddddddddddddddddddddddddddddddddddddddddddddddddddddddddddddddd dddddddddddddddddddddddddddddddddddddddddddddddddddddddddddddddddddddddddddddddd dddddddddddddddddddddddddddddddddddddddd dddddddddddddddddddddddddddddddddddddddddddddddddddddddddddddddddddddddddddddddd dddddddddddddddddddddddddddddddddddddddddddddddddddddddddddddddddddddddddddddddd dddddddddddddddddddddddddddddddddddddddd dddddddddddddddddddddddddddddddddddddddddddddddddddddddddddddddddddddddddddddddd dddddddddddddddddddddddddddddddddddddddddddddddddddddddddddddddddddddddddddddddd dddddddddddddddddddddddddddddddddddddddd dddddddddddddddddddddddddddddddddddddddddddddddddddddddddddddddddddddddddddddddd dddddddddddddddddddddddddddddddddddddddddddddddddddddddddddddddddddddddddddddddd dddddddddddddddddddddddddddddddddddddddd dddddddddddddddddddddddddddddddddddddddddddddddddddddddddddddddddddddddddddddddd dddddddddddddddddddddddddddddddddddddddddddddddddddddddddddddddddddddddddddddddd dddddddddddddddddddddddddddddddddddddddd dddddddddddddddddddddddddddddddddddddddddddddddddddddddddddddddddddddddddddddddd dddddddddddddddddddddddddddddddddddddddddddddddddddddddddddddddddddddddddddddddd dddddddddddddddddddddddddddddddddddddddd ddddddddddddddddddddddddddddddddddddddddddddddddddddddddddddddddd <Carlos Cordova - Last Filed: 04/15/24 23:36>
[2024-04-15] MEDS ORDERED: CARBOXYMETHYLCELLULOSE SODIUM 0.5% 15 ML OPTH PRN (19:50)
[2024-04-15 21:57] VITALS: O2SAT 97
[2024-04-15 22:22] VITALS: BMI 24.9
[2024-04-15] MEDS: CALCIUM CARBONATE 500 MG TAB PO SCH (22:39)
[2024-04-15] MEDS: MAGNESIUM CHLORIDE 64 MG TAB PO SCH (22:39)
[2024-04-16 06:00] LABS: Absolute Eosinophils 0.2 K/uL (0-0.5); Absolute Lymphocytes (CBC) 1.1 K/uL (0.7-4.9); Absolute Monocytes 0.6 K/uL (0.1-1.3); Absolute Neutrophil 3.8 K/uL (1.8-8.0); Basophils % 0.7 % (0-1.3); Eosinophils % 3.3 % (0-4.4); Hematocrit 34.4 % (39.6-49.0); Hemoglobin 11.9 g/dL (13.6-17.9); Lymphocytes % 19.4 % (15.3-44.8); MCH 32.1 pg (27.0-35.0); MCHC 34.8 g/dL (32.0-36.0); MCV 92.3 fL (80-100); MPV 8.9 fL (7.6-11.3); Monocytes % 11.1 % (3.3-12.3); Neutrophils % 65.5 % (41.7-73.7); Nucleated Red Blood Cells % 0.1 % (0-0); Platelets 176 thou/uL (152-406); RBC Red Blood Cell Count 3.72 M/uL (4.33-5.43); Red Cell Distribution Width 13.7 % (12.1-15.2)
[2024-04-16 06:25] LABS: Albumin 2.8 g/dL (3.4-5.0); Albumin/Globulin Ratio 0.9 (1.1-1.8); Anion Gap 8.9 mEq/L (5.0-15.0); Bilirubin Total 0.5 mg/dL (0.2-1.0); Globulin 3.1 g/dL (2.3-3.5); Magnesium 2.1 mg/dL (1.6-2.4); Phosphorus 4.2 mg/dL (2.5-4.9); Potassium 3.9 mEq/L (3.5-5.1); Protein, Total 5.9 g/dL (6.4-8.2); Thyroid Stimulating Hormone 3.51 uIU/mL (0.358-3.740)
[2024-04-16] MEDS: VALSARTAN 160 MG TAB PO SCH (08:51)
[2024-04-16] MEDS: VITAMIN D 5,000 UNIT CAP PO SCH (08:51)
[2024-04-16] MEDS: ASPIRIN EC 81 MG TAB PO SCH (08:51)
[2024-04-16] MEDS: TICAGRELOR 90 MG TABLET PO SCH (08:52)
[2024-04-16] MEDS: cloNIDine HCL 0.1 MG TAB PO STA (12:36)
[2024-04-16] MEDS: HYDRALAZINE HCL 20 MG/ML VIAL IV ONE (12:37)
--- NOTE | 2024-04-16 14:39 | EKG ---
Test Date: 2024-04-15 Test Time: 15:10:50 Corporate Learning Consultant: [employer]AS[employer]MENT RESULTS: Intervals: Rate: 59 SC: 178 QRSD: 104 QT: 410 QTc: 405 [place]: P: 50 SC: 178 QRS: 48 T: 45 INTERPRETIVE STATEMENTS: Sinus bradycardia Otherwise normal ECG Compared to ECG 03/28/2024 14:33:30 Sinus rhythm no longer present Electronically Signed On 04-16-24 14:38:33 CLINICAL SCIENTIST by Albert Abdi
[2024-04-16] MEDS: HYDRALAZINE HCL 25 MG TABLET PO SCH (16:00)
[2024-04-16] MEDS ORDERED: HYDRALAZINE HCL 20 MG/ML VIAL IV PRN (16:00)
--- NOTE | 2024-04-16 18:32 | P.PN ---
Subjective Date of Service: 04/16/24 Chief Complaint: Chest pain, eye pain admitted with chest pain, serial trop negative, <FranklinloganMary Ann - Last Filed: 04/16/24 18:34> Date of Service: 04/16/24 <Joey Johnson - Last Filed: 04/23/24 04:47> Review of Systems 10-point ROS is otherwise unremarkable <PatelMary Ann - Last Filed: 04/16/24 18:34> Physical Examination - Vital Signs Temperature: 98.3 F Blood Pressure: 102/50 Pulse: 65 Respirations: 16 Pulse Ox (%): 96 - Physical Exam General: Alert, In no apparent distress, Oriented x3 HEENT: Atraumatic, Normocephalic, Other ( L) subconjunctival hemorrhage) Neck: Supple, 2+ carotid pulse no bruit Respiratory: Clear to auscultation bilaterally, Normal air movement Cardiovascular: Normal pulses, Regular rate/rhythm, Normal S1 S2 Capillary refill: <2 Seconds Gastrointestinal: Normal bowel sounds, Soft and benign Musculoskeletal: No clubbing, No swelling, No contractures Integumentary: No rashes, No breakdown Neurological: Normal speech, Normal strength at 5/5 x4 extr, Cranial nerves 3-12 intact <PatelMary Ann - Last Filed: 04/16/24 18:34> Assessment And Plan - Plan Assessment and Plan - Problems (Diagnosis) (1) Chest pain Current Visit: Yes Status: Acute (2) Eye pain Current Visit: Yes Status: Acute (3) HTN (hypertension) Current Visit: Yes Status: Acute (4) CAD (coronary artery disease) Current Visit: Yes Status: Acute (5) Dyslipidemia Current Visit: Yes Status: Acute - Plan Chest pain: To [facility] Telemetry ordered Cardiology consulted Troponin ordered to trend Resumed high-dose statin home medications Continue with Brilinta, ASA CAD: 03/29/2024-left heart catheterization. Recommendations to continue ASA, Br ilinta, and high-dose statin. Also, staged PCI of OM in 4 to 6 weeks. 03/28/24 echocardiogram performed BNP, and other labs ordered to trend Eye pain: Artificial tears as needed recommended by ED 20/20 vision in both eyes If change in vision, worsening proptosis of eyes, or increased bleeding noted in eyes, will initiate transfer for ophthalmology HTN: Resumed home medication HDL: Resumed home medication Discharge Plan: Home - Code Status/Comfort Care Code Status: Full Code Critical Care: No Time Spent Managing PTS Care (In Minutes): 35 <Mary Ann Sweeney - Last Filed: 04/16/24 18:34> Date of Service: 04/16/24 Chart has been reviewed. Events of the last 24 hours have been noted. Case discussed with YULI. I performed a substantial part of the MDM during this patient's care today. I personally made or approved the documented management plan and acknowledge its risk of complications. I agree with the findings and documentation provided in the YULI's notes <Joey Johnson - Last Filed: 04/23/24 04:47>
[2024-04-16] MEDS: ATORVASTATIN 40 MG TAB PO SCH (20:46)
[2024-04-17 04:21] LABS: Specific Gravity 1.009 (1.005-1.030); Sqamous Epithelial <5 /HPF (None Seen); Urine Bacteria None Seen /HPF (<20); Urine Bilirubin NEGATIVE (Negative); Urine Blood Negative (Negative); Urine Clarity Clear (Clear); Urine Color Light-Yellow (Yellow); Urine Culture Reflex Order NOT NEEDED; Urine Glucose NEGATIVE (Negative); Urine Ketones NEGATIVE (Negative); Urine Microscopic Reflex YN ORDER UMIC; Urine Nitrite NEGATIVE (Negative); Urine Protein NEGATIVE (Negative); Urine RBC None Seen /HPF (None Seen); Urine Urobilinogen Normal (Normal); Urine WBC <5 /HPF (<5)
[2024-04-17 05:45] LABS: Absolute Eosinophils 0.2 K/uL (0-0.5); Absolute Lymphocytes (CBC) 1.1 K/uL (0.7-4.9); Absolute Monocytes 0.7 K/uL (0.1-1.3); Absolute Neutrophil 3.9 K/uL (1.8-8.0); Basophils % 0.8 % (0-1.3); Hematocrit 35.9 % (39.6-49.0); Hemoglobin 12.4 g/dL (13.6-17.9); Lymphocytes % 18.8 % (15.3-44.8); MCH 32.1 pg (27.0-35.0); MCHC 34.5 g/dL (32.0-36.0); MCV 93.1 fL (80-100); MPV 8.9 fL (7.6-11.3); Monocytes % 11.1 % (3.3-12.3); Neutrophils % 65.3 % (41.7-73.7); Platelets 182 thou/uL (152-406); RBC Red Blood Cell Count 3.85 M/uL (4.33-5.43); Red Cell Distribution Width 13.7 % (12.1-15.2)
[2024-04-17 06:07] LABS: Anion Gap 5.1 mEq/L (5.0-15.0); Potassium 5.1 mEq/L (3.5-5.1); Troponin High Sensitivity 25.8 pg/mL (<58.9)
[2024-04-17] MEDS: AMLODIPINE 10 MG TAB PO SCH (08:39)
[2024-04-18 05:49] LABS: Absolute Eosinophils 0.2 K/uL (0-0.5); Absolute Lymphocytes (CBC) 1.1 K/uL (0.7-4.9); Absolute Monocytes 0.7 K/uL (0.1-1.3); Absolute Neutrophil 4.3 K/uL (1.8-8.0); Basophils % 0.6 % (0-1.3); Eosinophils % 3.1 % (0-4.4); Hematocrit 36.2 % (39.6-49.0); Hemoglobin 12.4 g/dL (13.6-17.9); Lymphocytes % 17.1 % (15.3-44.8); MCH 32.1 pg (27.0-35.0); MCHC 34.3 g/dL (32.0-36.0); MCV 93.6 fL (80-100); MPV 8.8 fL (7.6-11.3); Monocytes % 10.9 % (3.3-12.3); Neutrophils % 68.3 % (41.7-73.7); Nucleated Red Blood Cells % 0.2 % (0-0); Platelets 181 thou/uL (152-406); RBC Red Blood Cell Count 3.87 M/uL (4.33-5.43); Red Cell Distribution Width 13.8 % (12.1-15.2)
[2024-04-18 06:23] LABS: Anion Gap 5.2 mEq/L (5.0-15.0); Potassium 4.2 mEq/L (3.5-5.1); Troponin High Sensitivity 24.7 pg/mL (<58.9)
--- NOTE | 2024-04-18 08:03 | P.PN ---
Date of Service: 04/17/24 Subjective no reported chest pain, serial troponin negative Review of Systems 10-point ROS is otherwise unremarkable Physical Examination - Vital Signs reviewed - Physical Exam General: Alert, In no apparent distress, Oriented x3 HEENT: Atraumatic, Normocephalic, Other ( L) subconjunctival hemorrhage) Neck: Supple, 2+ carotid pulse no bruit Respiratory: Clear to auscultation bilaterally, Normal air movement Cardiovascular: Normal pulses, Regular rate/rhythm, Normal S1 S2 Gastrointestinal: Normal bowel sounds, Soft and benign Integumentary: No rashes, No breakdown Assessment And Plan - Plan Assessment and Plan - Problems (Diagnosis) (1) Chest pain Current Visit: Yes Status: Acute (2) Eye pain Current Visit: Yes Status: Acute (3) HTN (hypertension) Current Visit: Yes Status: Acute (4) CAD (coronary artery disease) Current Visit: Yes Status: Acute (5) Dyslipidemia Current Visit: Yes Status: Acute - Plan Chest pain: To [facility] Telemetry ordered Cardiology consulted Troponin ordered to trend Resumed high-dose statin home medications Continue with Brilinta, ASA CAD: 03/29/2024-left heart catheterization. Recommendations to continue ASA, Brilinta, and high-dose statin. Also, staged PCI of OM in 4 to 6 weeks. 03/28/24 echocardiogram performed BNP, and other labs ordered to trend Subjective hemorrhage likely secondary to chronic anticoagulation on Brilinta Artificial tears as needed recommended by ED 20/20 vision in both eyes If change in vision, worsening proptosis of eyes, or increased bleeding noted in eyes, will initiate transfer for ophthalmology HTN: Resumed home medication HDL: Resumed home medication Discharge Plan: Home - Code Status/Comfort Care Code Status: Full Code Critical Care: No Time Spent Managing PTS Care (In Minutes): 25 <Mary Ann Sweeney - Last Filed: 04/18/24 08:04> Chart has been reviewed. Events of the last 24 hours have been noted. Case discussed with YULI. I performed a substantial part of the MDM during this patient's care today. I personally made or approved the documented management plan and acknowledge its risk of complications. I agree with the findings and documentation provided in the YULI's notes <Joey Johnson - Last Filed: 04/23/24 04:48>
--- NOTE | 2024-04-18 12:26 | P.CNS ---
Date of Consult: 04/18/24 Chief Complaint: Chest pain, eye pain History of Present Illness: Patient with PMH of CAD s/p recent PCI of LAD, presented with chest pain, eye redness, denies any other cardiac symptoms. Allergies No Known Allergies Allergy (Verified 03/28/24 13:12) Home medications list reviewed: Yes Home Medications: Aspirin [Aspirin Regimen] 81 mg PO DAILY 10/03/22 Calcium Carbonate [Calcium] 600 mg PO DAILY 10/03/22 Cinnamon Bark [Cinnamon] 2 tab PO DAILY 10/03/22 Magnesium Chloride [Slow-Mag] 64 mg PO BID 10/03/22 Valsartan 320 mg PO DAILY 10/03/22 Zinc Amino Acid Chelate [Zinc] 50 mg PO DAILY 10/03/22 Ascorbic Acid [Vitamin C] 500 mg PO DAILY 01/02/23 Atorvastatin Calcium [Lipitor] 40 mg PO DAILY 01/30/23 Cholecalciferol (Vitamin D3) [Vitamin D3] 125 mcg PO DAILY 01/30/23 Vitamin E (Dl,Tocopheryl Acet) [Vitamin E] 1 tab PO DAILY 03/31/23 Ticagrelor [Brilinta] 90 mg PO BID 04/15/24 - Past Medical/Surgical History Diabetic: No -: CAD s/p left heart catheterization -: HDL -: HTN -: Had surgery x 2 - Family History Father Medical History: Heart disease Mother Medical History: Hypertension - Social History Alcohol use: No CD- Drugs: No Caffeine use: No Place of Residence: Home Review of Systems 10-point ROS is otherwise unremarkable Physical Examination Temp Pulse Resp BP Pulse Ox 98.7 F 70 16 158/70 H 98 04/18/24 08:00 04/18/24 08:42 04/18/24 08:00 04/18/24 08:42 04/18/24 08:00 General: Alert, In no apparent distress HEENT: Atraumatic, PERRLA, Mucous membr. moist/pink, EOMI, Sclerae nonicteric Neck: Supple, 2+ carotid pulse no bruit, No LAD, Without JVD or thyroid abnormality Respiratory: Clear to auscultation bilaterally, Normal air movement Cardiovascular: Regular rate/rhythm, Normal S1 S2 Gastrointestinal: Normal bowel sounds, No tenderness Musculoskeletal: No tenderness Integumentary: No rashes Neurological: Normal gait, Normal speech, Normal tone, Normal affect Lymphatics: No axilla or inguinal lymphadenopathy - Problems (1) CAD (coronary artery disease) Current Visit: Yes Status: Acute Plan: chest pain resolved, troponin negative, patient is cheduled for staged PCI of OM in few weeks. continue ASA 81 mg daily stop Brilinta Plavix 300 mg po x1 then continue Plavix 75 mg daily continue lipitor (2) Dyslipidemia Current Visit: Yes Status: Acute Plan: continue lipitor 40 mg daily (3) HTN (hypertension) Current Visit: Yes Status: Acute Plan: continue BP medications
--- NOTE | 2024-04-18 12:45 | P.DS ---
Admission Date: 04/16/24 Discharge Date: 04/18/24 Reason for Admission: Chest pain, eye pain Brief History of Present Illness: 83-year-old man with a past medical history significant for CAD s/p left heart catheterization (03/29/24), HTN, and HDL presented to the emergency room complai seema of chest pain x 1 day and eye pain that began earlier today. The patient states he began having chest pain yesterday. He describes this chest pain as substernal, without radiation, and of an aching quality. He states his chest pain is present at rest. Also, the patient states he woke up this morning with a left eye that appeared "bloody". He denies recent eye trauma, and falls. The patient states that since he awoke this morning he believes his left eye is now more "red", and his right eye is now slightly red. The patient has been taking Brilinta since his recent heart stent procedure. Also, the patient states that earlier today he had blurry vision in both eyes and mild eye pain that has now resolved. He denies any visual impairments at this time. The patient also denies cough, urinary symptoms, and dyspnea. - Physical Exam General: Alert, In no apparent distress, Oriented x3 HEENT: Atraumatic, Normocephalic, Other ( L) subconjunctival hemorrhage) Neck: Supple, 2+ carotid pulse no bruit Respiratory: Clear to auscultation bilaterally, Normal air movement Cardiovascular: Normal pulses, Regular rate/rhythm, Normal S1 S2 Gastrointestinal: Normal bowel sounds, Soft and benign Integumentary: No rashes, No breakdown Hospital Course: 83-year-old man with a past medical history significant for CAD s/p left heart catheterization (03/29/24), HTN, and HDL presented to the emergency room complaining of chest pain x 1 day and eye pain that began earlier today. The patient states he began having chest pain yesterday. He describes this chest pain as substernal, without radiation, and of an aching quality. He states his chest pain is present at rest. Also, the patient states he woke up this morning with a left eye that appeared "bloody". He denies recent eye trauma, and falls. The patient states that since he awoke this morning he believes his left eye is now more "red", and his right eye is now slightly red. The patient has been taking Brilinta since his recent heart stent procedure. Also, the patient states that earlier today he had blurry vision in both eyes and mild eye pain that has now resolved. He denies any visual impairments at this time. Serial troponin were negative. seen by cardiology, chest pain resolved. 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 Johnson at [phone] if any questions regarding hospital stay -Please call nursing station at [phone] if any nursing or medication questions -Return to the emergency room if symptoms worsen Diet: ADA, low sodium Activity: Fall precautions <Mary Ann Sweeney - Last Filed: 04/19/24 19:24> Admission Date: 04/16/24 Discharge Date: 04/18/24 Hospital Course: Chart has been reviewed. Events of the last 24 hours have been noted. Case discussed with YULI. I performed a substantial part of the MDM during this patient's care today. I personally made or approved the documented management plan and acknowledge its risk of complications. I agree with the findings and documentation provided in the YULI's notes <Joey Johnson - Last Filed: 04/23/24 04:49> Disposition: ROUTINE DISCHARGE Discharge Condition: GOOD Vital Signs/Physical Exam: Temp Pulse Resp BP Pulse Ox 98.7 F 70 16 158/70 H 98 04/18/24 08:00 04/18/24 08:42 04/18/24 08:00 04/18/24 08:42 04/18/24 08:00 Laboratory Data at Discharge: WBC 6.30 thou/uL (4.3-10.9) 04/18/24 05:17 Hgb 12.4 g/dL (13.6-17.9) L 04/18/24 05:17 Hct 36.2 % (39.6-49.0) L 04/18/24 05:17 Plt Count 181 thou/uL (152-406) 04/18/24 05:17 PT 11.0 SECONDS (9.4-12.5) 04/15/24 15:18 INR 0.98 04/15/24 15:18 Sodium 139 mEq/L (136-145) 04/18/24 05:17 Potassium 4.2 mEq/L (3.5-5.1) D 04/18/24 05:17 BUN 28 mg/dL (7-18) H 04/18/24 05:17 Creatinine 0.85 mg/dL (0.70-1.30) 04/18/24 05:17 Glucose 99 mg/dL (74-106) 04/18/24 05:17 Phosphorus 4.2 mg/dL (2.5-4.9) 04/16/24 05:17 Magnesium 2.1 mg/dL (1.6-2.4) 04/16/24 05:17 Total Bilirubin 0.5 mg/dL (0.2-1.0) 04/16/24 05:17 AST 21 U/L (15-37) 04/16/24 05:17 ALT 17 U/L (16-61) 04/16/24 05:17 Alkaline Phosphatase 69 U/L (45-117) 04/16/24 05:17 Lipase 19 U/L (13-75) 04/15/24 15:18 <Mary Ann Sweeney - Last Filed: 04/19/24 19:24> Vital Signs/Physical Exam: Temp Pulse Resp BP Pulse Ox 98.5 F 68 16 130/59 L 97 04/18/24 12:00 04/18/24 12:00 04/18/24 12:00 04/18/24 12:00 04/18/24 12:00 Laboratory Data at Discharge: WBC 6.30 thou/uL (4.3-10.9) 04/18/24 05:17 Hgb 12.4 g/dL (13.6-17.9) L 04/18/24 05:17 Hct 36.2 % (39.6-49.0) L 04/18/24 05:17 Plt Count 181 thou/uL (152-406) 04/18/24 05:17 PT 11.0 SECONDS (9.4-12.5) 04/15/24 15:18 INR 0.98 04/15/24 15:18 Sodium 139 mEq/L (136-145) 04/18/24 05:17 Potassium 4.2 mEq/L (3.5-5.1) D 04/18/24 05:17 BUN 28 mg/dL (7-18) H 04/18/24 05:17 Creatinine 0.85 mg/dL (0.70-1.30) 04/18/24 05:17 Glucose 99 mg/dL (74-106) 04/18/24 05:17 Phosphorus 4.2 mg/dL (2.5-4.9) 04/16/24 05:17 Magnesium 2.1 mg/dL (1.6-2.4) 04/16/24 05:17 Total Bilirubin 0.5 mg/dL (0.2-1.0) 04/16/24 05:17 AST 21 U/L (15-37) 04/16/24 05:17 ALT 17 U/L (16-61) 04/16/24 05:17 Alkaline Phosphatase 69 U/L (45-117) 04/16/24 05:17 Lipase 19 U/L (13-75) 04/15/24 15:18 <Joey Johnson - Last Filed: 04/23/24 04:49> Diet: Low sodium Activity: Fall precautions Time spent managing pt's care (in minutes): 45 <Mary Ann Sweeney - Last Filed: 04/19/24 19:24> <Joey Johnson - Last Filed: 04/23/24 04:49> Home Medications: Aspirin [Aspirin Regimen] 81 mg PO DAILY 10/03/22 Calcium Carbonate [Calcium] 600 mg PO DAILY 10/03/22 Cinnamon Bark [Cinnamon] 2 tab PO DAILY 10/03/22 Magnesium Chloride [Slow-Mag] 64 mg PO BID 10/03/22 Valsartan 320 mg PO DAILY 10/03/22 Zinc Amino Acid Chelate [Zinc] 50 mg PO DAILY 10/03/22 Ascorbic Acid [Vitamin C] 500 mg PO DAILY 01/02/23 Atorvastatin Calcium [Lipitor*] 40 mg PO DAILY 01/30/23 Cholecalciferol (Vitamin D3) [Vitamin D3] 125 mcg PO DAILY 01/30/23 Vitamin E (Dl,Tocopheryl Acet) [Vitamin E] 1 tab PO DAILY 03/31/23 Clopidogrel Bisulfate [Plavix] 75 mg PO DAILY 30 Days #30 tab 04/18/24 New Medications: Clopidogrel Bisulfate [Plavix] 75 mg PO DAILY 30 Days #30 tab Physician Discharge Instructions: 83-year-old man with a past medical history significant for CAD s/p left heart catheterization (03/29/24), HTN, and HDL presented to the emergency room complaining of chest pain x 1 day and eye pain that began earlier today. The patient states he began having chest pain yesterday. He describes this chest pain as substernal, without radiation, and of an aching quality. He states his chest pain is present at rest. Also, the patient states he woke up this morning with a left eye that appeared "bloody". He denies recent eye trauma, and falls. The patient states that since he awoke this morning he believes his left eye is now more "red", and his right eye is now slightly red. The patient has been taking Brilinta since his recent heart stent procedure. Also, the patient states that earlier today he had blurry vision in both eyes and mild eye pain that has now resolved. He denies any visual impairments at this time. Serial troponin were negative. seen by cardiology, chest pain resolved. 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 Johnson at [phone] if any questions regarding hospital stay -Please call nursing station at [phone] if any nursing or medication questions -Return to the emergency room if symptoms worsen Diet: ADA, low sodium Activity: Fall precautions Followup: Angela Knox, DONOVAN [Primary Care Provider] - Oscar Christianson MD [ACTIVE - CAN ADMIT] - Saturnino Good MD [ACTIVE - CAN ADMIT] -
[2024-04-18 13:11] VITALS: BP 130/59; TEMP 98.5
== END 2024-04-18 15:20 | disposition home or self-care (01) | DRG 125 ==
LOC: ER 14:15 → ERHOLD 19:25 → 2ND 20:47 → OBSVTOIN 04-16 18:31
PROVIDERS: ADMIT Hospitalist; ATTEND Hospitalist
DX: H11.32 Conjunctival hemorrhage, left eye (principal); I10 Essential (primary) hypertension; E78.5 Hyperlipidemia, unspecified; I25.10 Atherosclerotic heart disease of native coronary artery without angina pectoris; R07.9 Chest pain, unspecified; Z79.82 Long term (current) use of aspirin; Z79.899 Other long term (current) drug therapy
CPT/HCPCS: 36415; 71045; 80048; 80053; 80076; 81001; 83690; 83735; 83880; 84100; 84443; 84484; 85025; 85610; 93005; 94760; 96361; 96374; 99285; G0378; J0360; J7040

== ENCOUNTER 2024-04-26 20:21 | Emergency (ER) | payer OTHER ==
--- OUTSIDE RECORDS SUMMARY | 2024-04-26 20:24 | XMS REPORT | Continuity of Care Document ---
Author Name Unknown Address [address] [facility] [place] [address] [facility] Address [address] [facility] [address] [place] [address] Care Team Providers Care Home Health Aid Name Role Phone OCT[facility], [facility] Care Physician Unavailable HANG RODRIGUEZ Attending Clinician Unavailable NAHID SHUKLA Attending Clinician Unavailable Nahid Shukla MD Attending Clinician [phone] Hang Rodriguez MD Attending Clinician [phone] GLEN MILTON Attending Clinician Unavailable Glen Milton MD Attending Clinician [phone] Hang Rodriguez MD Attending Clinician [phone] YE FRANCO Attending Clinician UnavailANIKA Soto Attending Clinician Unavailable KIET WHATLEY Attending Clinician Unavailable BUCKY GALLARDO Attending Clinician Unavailable JACKIE BHATTI Attending Clinician Unavailable ZENAIDA WELLINGTON Attending Clinician Unava ilyulissa PATTON Attending Clinician Unavailable Zenaida Wellington MD Attending Clinician [phone] Karine GAUTHIER, Glen Attending Clinician [phone] Doctor Unassigned, [place] Attending Clinician U navailable Lab, Adc Fam Pob I Attending Clinician Unavailab Fernanda Hollingsworth Attending Clinician FERNANDA ALVAREZ Attending Clinician Unavailable HANG RODRIGUEZ Admitting Clinician Unavailable POOJA Admitting Clinician Unavailable Payers Payer Name Policy Type Policy Number Effective Date Expirati on Date Source HUMANSean GOLD PLS O [id number] 2021 00:00:00 MEDICAID [facility] [id number] 2019 00:00:00 WELLCARE NO PREMIUM HMO [id number] 2020 00:00:00 [employer] MEDICARE ADVANTAGE DUAL PLAN HMO 7 [id number] 2021 00:00:00 HUMANA MEDICARE [id number] GOLD PLUS 2021 7 [id number] 2021 00:00:00 Problems Condition Name Condition Details Condition Category Status Onset Date Resolution Date Last Treatment Date Treating Clinician Comments Source 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) Disease Active 01-14 00:00: 00 [facility] Confusion Confusion Disease Active 08-08 00:00: 00 [facility] 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 pectoris Disease Active 08-08 00:00: 00 [facility] Chest pain, unspecifie d type Chest pain, unspecifie d type Disease Active 08-08 00:00: 00 [facility] Malignant neoplasm of prostate Malignant neoplasm of prostate Disease Active 09-19 00:00: 00 [facility] 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 ICD10 Diagnosis Term Board [employer] [facility] Cough Cough Disease Active 11-29 00:00: 00 [facility] Essential hypertensi on, benign Essential hypertensi on, benign Disease Active 11-29 00:00: 00 [facility] HLD (hyperlipi demia) HLD (hyperlipi demia) Disease Active 11-29 00:00: 00 Overview: Formattin g of this note might be different from the original. ICD10 Diagnosis Term Board [employer] [facility] Esophageal reflux Esophageal reflux Disease Active 11-29 00:00: 00 [facility] Allergies, Adverse Reactions, Alerts Allergy Name Allergy Type Status Severity Reaction(s) Onset Date Inactive Date Treating Clinician Comments Source No Known Allergie s DA Active U 11-17 00:00: 00 [facility] No Known Allergie s DA Active U 11-16 00:00: 00 [facility] BECK INHIBITO RS Drug Class Active Unknown-Cmnt 09-19 00:00: 00 [facility] Beck Inhibito rs Propensi ty to adverse reaction s Active Unknown - See comments 09-19 00:00: 00 Cough [facility] Beck Inhibito rs Propensi ty to adverse reaction s Active Unknown - See comments 09-19 00:00: 00 Cough [facility] Social History Social Habit Start Date Stop Date Quantity Comments Source [facility] to SARS-CoV-2 (event) Not sure [facility] History SDOH Alcohol Frequency [facility] History SDOH Alcohol Std Drinks [facility] History SDOH Alcohol Binge [facility] Alcoholic beverage intake 2024-04-03 00:00:00 2024-04-03 00:00:00 Current drinker of alcohol (finding) [facility] History of Social function 2023-08-09 00:00:00 2023-08-09 00:00:00 [facility] Tobacco use and exposure 2023-08-09 00:00:00 2023-08-09 00:00:00 Smokeless tobacco non-user [facility] Alcohol intake 2023-08-09 00:00:00 2023-08-09 00:00:00 Current drinker of alcohol (finding) [facility] Alcohol Comment 2006-12-08 00:00:00 2006-12-08 00:00:00 quit moderate etoh use 30+ yrs ago [facility] Sex assigned at 1940 00:00:00 1940 00:00:00 [facility] Smoking Status Start Date Stop Date Source Never smoked tobacco [facility] Medications Ordered Medication Name Filled Medication Name Start Date Stop Date Current Medication? Ordering Clinician Indication Dosage Frequency Signature (SIG) Comments Components Source VITAMIN E, BULK, MISC 2023-04 14:54: 13 Yes 180mg Take 180 mg in the morning. [facility] Zinc Acetate, Oral, 50 mg (zinc) Cap 2023-04 14:54: 13 Yes Take by mouth. [facility] donepeziL 5 mg tablet 01-19 00:00: 00 Yes [facility] tc 99m-tetrofo smin (MYOVIEW) injection 41.4 millicurie 01-17 17:30: 00 01-17 17:20 :00 No [id number] 41.4mCi 41.4 millicurie , Intravenou s, ONCE, 1 dose, On Mon01/18/24 at 1230, Routine [facility] tc 99m-tetrofo smin (MYOVIEW) injection 15.2 millicurie 01-17 16:00: 00 01-17 16:00 :00 No [id number] 15.2mCi 15.2 millicurie , Intravenou s, ONCE, 1 dose, On Mon01/18/24 at 1100, Routine [facility] donepeziL 10 mg tablet 08-08 13:40: 58 08-08 00:00 :00 No 10mg Take 1 tablet by mouth in the morning. [facility] valsartan 320 mg tablet 08-02 00:00: 00 Yes 320mg Take 1 tablet by mouth in the morning. [facility] atorvastati n 20 mg tablet 08-02 00:00: 00 Yes 20mg Take 1 tablet by mouth at bedtime. [facility] HYDROCHLORO THIAZIDE 25 MG ORAL TAB 09-17 00:00: 00 08-08 00:00 :00 No [id number] 1 tab po dilay [facility] VIAGRA 50 MG ORAL TAB 06-12 00:00: 00 Yes [id number] 1 by mouth every day prn ED [facility] PEPCID 40 MG ORAL TAB 06-12 00:00: 00 08-08 00:00 :00 No [id number] 1 po bid [facility] METOPROLOL TARTRATE 25 MG ORAL TAB 06-12 00:00: 00 08-08 00:00 :00 No [id number] 1 po bid [facility] PRAVACHOL 20 MG ORAL TAB 06-12 00:00: 00 08-08 00:00 :00 No [id number] 1 po qhs [facility] LISINOPRIL- HYDROCHLORO THIAZIDE 20-25 MG ORAL TAB 06-12 00:00: 00 08-08 00:00 :00 No [id number] 1 by mouth every day [facility] ENALAPRIL MALEATE 10 MG ORAL TAB 12-08 00:00: 00 08-08 00:00 :00 No [id number] 1 po bid [facility] HYDROCHLORO THIAZIDE 25 MG ORAL TAB 12-08 00:00: 00 08-08 00:00 :00 No [id number] 1 po qam [facility] PROTONIX 40 MG ORAL TBEC 12-08 00:00: 00 08-08 00:00 :00 No [id number] 1 po bid [facility] ASPIRIN 81 MG ORAL CHEW 2005-04 00:00: 00 Yes 1 tab daily [facility] Immunizations Ordered Immunization Name Filled Immunization Name Date Status Comments Source PPD (TB) 2005-11-29 00:00:00 Completed [facility] PPD (TB) 2005-11-29 00:00:00 Completed [facility] PPD (TB) 2005-11-29 00:00:00 Completed [facility] PPD (TB) 2005-11-29 00:00:00 Completed [facility] PPD (TB) 2005-11-29 00:00:00 Completed [facility] PPD (TB) 2005-11-29 00:00:00 Completed [facility] PPD (TB) 2005-11-29 00:00:00 Completed [facility] PPD (TB) 2005-11-29 00:00:00 Completed [facility] PPD (TB) 2005-11-29 00:00:00 Completed [facility] PPD (TB) Unknown Completed [facility] PPD (TB) Unknown Completed [facility] PPD (TB) Unknown Completed [facility] PPD (TB) Unknown Completed [facility] PPD (TB) Unknown Completed [facility] PPD (TB) Unknown Completed [facility] PPD (TB) Unknown Completed [facility] Vital Signs Vital Name Observation Time Observation Value Comments S ource Systolic blood pressure 2024-04-03 19:25:00 130 mm[Hg] [facility] Diastolic blood pressure 2024-04-03 19:25:00 73 mm[Hg] [facility] Heart rate 2024-04-03 19:25:00 70 /min [facility] Body temperature 2024-04-03 19:25:00 36.39 Aide [facility] Body height 2024-04-03 19:25:00 172.7 cm [facility] Body weight 2024-04-03 19:25:00 73.846 kg [facility] BMI 2024-04-03 19:25:00 24.75 kg/m2 [facility] Oxygen saturation in Arterial blood by Pulse oximetry 2024-04-03 19:25:00 98 /min [facility] Systolic blood pressure 2024-01-23 19:23:00 133 mm[Hg] [facility] Diastolic blood pressure 2024-01-23 19:23:00 63 mm[Hg] [facility] Heart rate 2024-01-23 19:23:00 76 /min Unive [facility] Body temperature 2024-01-23 19:18:00 36.61 Aide [facility] Respiratory rate 2024-01-23 19:18:00 16 /min [facility] Body height 2024-01-23 19:18:00 172.7 cm Univ [facility] Body weight 2024-01-23 19:18:00 72.576 kg [facility] BMI 2024-01-23 19:18:00 24.33 kg/m2 [facility] Oxygen saturation in Arterial blood by Pulse oximetry 2024-01-23 19:18:00 98 /min [facility] Systolic blood pressure 2024-01-15 15:26:00 111 mm[Hg] [facility] Diastolic blood pressure 2024-01-15 15:26:00 52 mm[Hg] [facility] Heart rate 2024-01-15 15:26:00 67 /min Unive [facility] Body temperature 2024-01-15 15:26:00 36.44 Aide [facility] Respiratory rate 2024-01-15 15:26:00 16 /min [facility] Body height 2024-01-15 15:26:00 172.7 cm [facility] Body weight 2024-01-15 15:26:00 70.67 kg [facility] BMI 2024-01-15 15:26:00 23.69 kg/m2 [facility] Oxygen saturation in Arterial blood by Pulse oximetry 2024-01-15 15:26:00 98 /min [facility] Systolic blood pressure 2023-08-09 18:29:00 117 mm[Hg] [facility] Diastolic blood pressure 2023-08-09 18:29:00 49 mm[Hg] [facility] Heart rate 2023-08-09 18:29:00 75 /min Unive [facility] Respiratory rate 2023-08-09 18:29:00 19 /min [facility] Body height 2023-08-09 18:29:00 172.7 cm [facility] Body weight 2023-08-09 18:29:00 81.012 kg [facility] BMI 2023-08-09 18:29:00 27.16 kg/m2 [facility] Oxygen saturation in Arterial blood by Pulse oximetry 2023-08-09 18:29:00 98 /min [facility] Heart rate 2021-02-25 21:25:00 64 /min Unive [facility] Body temperature 2021-02-25 21:25:00 36.22 Aide [facility] Respiratory rate 2021-02-25 21:25:00 18 /min [facility] Body height 2021-02-25 21:25:00 172.7 cm [facility] Body weight 2021-02-25 21:25:00 82.283 kg [facility] BMI 2021-02-25 21:25:00 27.58 kg/m2 [facility] Oxygen saturation in Arterial blood by Pulse oximetry 2021-02-25 21:25:00 100 /min [facility] Systolic blood pressure 2021-02-25 21:25:00 152 mm[Hg] [facility] Diastolic blood pressure 2021-02-25 21:25:00 66 mm[Hg] [facility] Procedures Procedure Date / Time Performed Performing Clinician Source LACHELLE,POST-VOID RES,US,NON-IMAGING 2024-04-03 19:33:00 Nahid Shukla [facility] LACHELLE,POST-VOID RES,US,NON-IMAGING 2024-01-23 19:43:00 Glen Milton [facility] POCT URINALYSIS AUTO 2024-01-23 19:43:[address] [facility] NM MYOCARDIUM PERFUSION STRESS AND REST 2024-01-18 19:01:00 Hang [facility] MYOCARDIUM PERFUSION STRESS AND REST 2024-01-18 19:01:00 Hang Rodriguez [facility] NM MYOCARDIUM PERFUSION STRESS AND REST 2024-01-18 19:01[facility]FUSION STRESS AND REST 2024-01-18 19:01:00 [facility] TRAN[facility]AC[facility] E[facility] (TTE) COMPLETE 2024-01-18 17:13:00 [facility]OUT[facility] & RHYTHM STRIP 2023-08-09 18:34:10 [facility] 2023-08-08 13:59:58 Doctor Zhanna james, [place] [facility] POCT URINALYSIS AUTO 2021-02-25 21:21:00 Dipika Milton [facility] Encounters Start Date/Time End Date/Time Encounter Type Admission Type Attending [facility] Care Facility Care Department Encounter ID Source 2024-08-08 13:00:00 2024-08-08 13:00:00 Outpatient [facility]a [facility] [id number] [facility] 2024-05-01 14:00:00 2024-05-01 14:00:00 Outpatient [facility] [id number] [facility] 2024-04-03 13:30:00 2024-04-03 14:19:55 [facility] [id number] [facility] 2024-04-03 13:30:00 2024-04-03 14:19:55 Office Visit [facility]ahid [facility] [id number] 350.1.13.10 4.2.7.2.686 [id number] [facility] 2024-02-19 09:00:00 2024-02-19 09:00:00 Outpatient Daniela SHUKLANAHID [facility] [id number] [facility] 2024-01-30 14:00:00 2024-01-30 14:00:00 Outpatient Daniela SHUKLA [facility] [id number] [facility] 2024-01-19 00:00:00 2024-01-26 13:26:14 Telephone Hang Rodriguez [facility] PROFESSIO [facility] [id number] 350.1.13.10 4.2.7.2.686 [id number] [facility] 2024-01-23 14:30:00 2024-01-23 16:08:25 Outpatient R KARINE [facility] [id number] [facility] 2024-01-23 14:30:00 2024-01-23 16:08:25 Office Visit Karine [facility] 1.0.114 350.1.13.10 4.2.7.2.686 [id number] [facility] 2024-01-18 10:50:11 2024-01-18 23:59:00 [facility] [id number] [facility] 2024-01-18 10:50:11 2024-01-18 23:59:00 [facility] 1.0.114 350.1.13.10 4.2.7.2.686 [id number] [facility] 2024-01-18 10:49:53 2024-01-18 10:49:53 Hospital Encounter Hang Rodriguez [facility] 1.2840.114 350.1.13.10 4.2.7.2.686 [id number] [facility] 2024-01-18 10:49:42 2024-01-18 10:49:42 [facility] [id number] 350.1.13.10 4.2.7.2.686 [id number] [facility] 2024-01-18 10:49:06 2024-01-18 10:49:06 Hospital Encounter Hang Rodriguez [facility] [id number] 350.1.13.10 4.2.7.2.686 [id number] [facility] 2024-01-18 00:30:00 2024-01-18 10:48:00 Hospital Encounter Hang Rodriguez [facility] [id number] 350.1.13.10 4.2.7.2.686 [id number] [facility] 2024-01-15 10:00:00 2024-01-15 10:40:29 [facility] [id number] [facility] 2024-01-15 10:00:00 2024-01-15 10:40:29 [facility] [id number] 350.1.13.10 4.2.7.2.686 [id number] [facility] 2023-09-28 00:00:00 2023-09-28 00:00:00 [facility] [id number] [facility] 2023-09-21 00:00:00 2023-09-21 14:19:10 [facility] [id number] 350.1.13.10 4.2.7.2.686 [id number] [facility] 2023-09-07 15:38:20 2023-09-07 23:59:00 [facility] [id number] [facility] 2023-09-07 15:38:20 2023-09-07 23:59:00 [facility] 1.2.840.114 350.1.13.10 4.2.7.2.686 [id number] [facility] 2023-08-11 00:00:00 2023-08-11 00:00:00 [facility] 1.2.840.114 350.1.13.10 4.2.7.2.686 [id number] [facility] 2023-08-10 00:00:00 2023-08-10 00:00:00 [facility] 1.2.840.114 350.1.13.10 4.2.7.2.686 [id number] [facility] 2023-08-09 13:40:00 2023-08-09 14:01:25 [facility] [id number] [facility] 2023-08-09 13:40:00 2023-08-09 14:01:25 [facility] 1.2.840.114 350.1.13.10 4.2.7.2.686 [id number] [facility] 2023-08-07 00:00:00 2023-08-07 00:00:00 Telephone Rolo [facility] BUILDING 1.2.840.114 350.1.13.10 4.2.7.2.686 [id number] [facility] 2023-08-01 13:00:00 2023-08-01 13:00:00 Outpatient R YE FRANCO [facility] [id number] [facility] 2023-06-08 15:30:00 2023-06-08 15:30:00 Outpatient YE AGUIAR [facility] [id number] [facility] 2022-01-19 13:00:00 2022-01-19 13:00:00 Outpatient ANIKA DRAPER CARLEY KERNS [id number] [facility] 2022-01-17 13:20:00 2022-01-17 13:20:00 Outpatient KIET WHATLEY CAR[facility] KERNS [id number] [facility] 2022-01-13 00:00:00 2022-01-13 00:00:00 Outpatient BUCKY GALALRDO [facility] [id number] [facility] 2021-12-20 14:20:00 2021-12-20 14:20:00 Outpatient JACKIE BHATTI [facility] [id number] [facility] 2021-11-16 00:00:00 2021-11-16 00:00:00 Outpatient ZENAIDA WELLINGTON [id number] [facility] 2021-11-15 10:43:00 2021-11-15 10:43:00 Outpatient JOHAN [facility] [id number] [facility] 2021-11-15 00:00:00 2021-11-15 00:00:00 Outpatient ZENAIDA WELLINGTON [id number] [facility] 2021-10-15 00:00:00 2021-10-15 00:00:00 Outpatient ZENAIDA WELLINGTON [id number] [facility] 2021-10-07 14:30:00 2021-10-07 15:00:00 Office Visit Zenaida Wellington [place] 1.2.840.114 350.1.13.13 [id number] [id number] [facility] 2021-10-06 14:30:00 2021-10-06 14:30:00 Outpatient ZENAIDA WELLINGTON [id number] [facility] 2021-03-25 14:00:00 2021-03-25 14:00:00 Outpatient NAHID GARCIA [facility] [id number] [facility] 2021-02-25 15:30:00 2021-02-25 16:59:55 Outpatient R GLEN MILTON [facility] [id number] [facility] 2021-02-25 15:26:25 2021-02-25 16:59:55 Office Visit Karine [facility] BUILDING 1.2840.114 350.1.13.10 4.2.7.2.686 [id number] [facility] 2021-01-28 00:00:00 2021-01-28 00:00:00 Orders Only Doctor Unassigned, [place] [facility] 1.20.114 350.1.13.10 4.2.7.2.686 [id number] [facility] 2019-11-29 11:10:53 2019-11-29 11:30:53 Laboratory Only Lab, Adc F[facility] Pob [facility] 1.2.114 350.1.13.10 4.2.7.2.686 [id number] [facility] 2019-11-29 11:00:00 2019-11-29 11:00:00 Outpatient R FERNANDA ALVAREZ [facility] [id number] [facility] 2019-11-29 00:00:00 2019-11-29 00:00:00 Letter (Out) Doctor Unassigned, [place] [facility] 1.20.114 350.1.13.10 4.2.7.2.686 [id number] [facility] 2019-11-29 00:00:00 2019-11-29 00:00:00 Letter (Out) Doctor Unassigned, [place] [facility] 1.2840.114 350.1.13.10 4.2.7.2.686 [id number] [facility] Results Test Description Test Time Test Comments Results Result Co [facility]ments [facility] [id number] 19:43:00 * Test Item Value Reference Range [...] Clear Lab Interpretation (test cod e = 60157-7) Abnormal [facility]-VOID RES,US,[id number] 19:43:00* Test Item Value Reference Range Interpretation Comme nts PVR (URINE VOLUME) (test code = 5193) 5 ml 0-100 [facility] (TTE)2024-01-18 22:05:33* Test Item Value Reference Range Interpretation Comme nts Height (test code = 7132143865) 67 in Weight (test code = 4383852148) 166 lbs Systolic BP (test code = 3905986070) 168 mmHg Diastolic BP (test code = 0467899191) 60 mmHg Heart Rate (test code = 1446155787) 72 bpm LV GLS Endo Peak A2C () (test code = 8704019730) -18.80 % LV GLS Endo Peak A3C () (test code = 5986694077) -20.60 % LV GLS Endo Peak A4C () (test code = 0571265715) -18.40 % LV GLS Endo Peak Avg () (test code = 0654967751) -19.30 % BSA (test code = 3603153852) 1.89 m2 LVIDD (test code = 6384469304) 4.00 cm Left Ventricular End Diastolic Volume by Teichholz Method (test code = 1038609) 70.7 mL IVS (test code = 3884852412) 1.53 cm Interventricular Septum Diastolic Thickness by 2D (test code = 7210166) 1.53 cm LVPWD (test code = 5790358875) 1.53 cm PW (test code = 9454186693) 1.53 cm 0.6-1.1 EF(Teich) (test code = 0763899753) 60.20 % LVIDS (test code = 5481053501) 2.70 cm Left Ventricular End Systolic Volume by Teichholz Method (test code = 9308738) 28.1 mL FS (test code = 4557954486) 32 % EF - 2D (test code = 89694913) 60.20 % LVOT diameter (test code = 8379263299) 2.00 cm LVOT area (test code = 0596607535) 3.20 cm2 Ao root diam (test code = 5737199393) 3.00 cm Aortic root (test code = 5038290158) 3.0 cm Ao root annulus (test code = 3981861590) 3.0 cm TR Peak Jovanny (test code = 0419366737) 248.6 cm/s Triscuspid Valve Regurgitation Peak Gradient (test code = 7239585376) 24.7 mmHg Pulmonic Regurgitant End Max Velocity (test code = 9877540316) 89.2 cm/s MR max PG (test code = 7670733491) 109.70 mm[Hg] MR max jovanny (test code = 9038533978) 523.60 cm/s Mr max jovanny (test code = 8720728527) 523.6 m/s MV Peak A Jovanny (test code = 3560103108) 97.4 cm/s MV Peak E Jovanny (test code = 7809587476) 84.2 cm/s E/A ratio (test code = 6760910376) 0.86 ratio MV stenosis pressure 1/2 time (test code = 6211594989) 104.6 ms E wave decelartion time (test code = 8846950513) 0.35 s MV E/e' septal (test code = 7249601424) 9.4 cm/s Tapse (test code = [id number]) 1.52 cm AV regurgitation pressure 1/2 time (test code = 6630039702) 1064 ms AI dec slope (test code = 0217542170) 79.00 cm/s2 AI max jovanny (test code = 9354880893) 287.10 cm/s AI max PG (test code = 3338070008) 33.00 mm[Hg] Aortic valve mean velocity (test code = 2530379090) 96.4 cm/s Ao peak jovanny (test code = 5243993422) 162.0 cm/s Ao VTI (test code = 2206600473) 34.1 cm Ao max PG (test code = 8366516351) 10.50 mm[Hg] AV peak gradient (test code = 5820964602) 10.5 mmHg AV mean gradient (test code = 7783950564) 4.4 mmHg LVOT stroke volume (test code = 3880792681) 55.00 cm3 LVOT peak jovanny (test code = 8100446761) 62.9 cm/s LVOT mn grad (test code = 0865684342) 0.8 mmHg AV LVOT peak gradient (test code = 9054856019) 1.58 mmHg LVOT peak VTI (test code = 5973169540) 17.4 cm AV area by cont VTI (test code = 7707045998) 1.6 cm2 AV area peak jovanny (test code = 5955485135) 1.2 cm2 LV V1 mean (test code = 2621030778) 41.80 cm/s AV valve area (test code = 3112678357) 1.61 cm2 LAV(MOD-sp4) (test code = 7741498217) 69.90 mL LA size (test code = 4226249345) 4.5 cm MV Prop V (test code = 6494927515) 30.00 cm/s Radiology Study observation (narrative) (test code = 29444-7) CODIE (test code = CODIE) ?Left?Ventricle: Left [...] color flow Doppler, spectral Doppler and strain. [id number] 13:59:58Ordered by an unspecified provider.[facility] 2023-08-08 13:59:58Ordered by an unspecified provider.[facility] [id number] 13:59:58Ordered by an unspecified provider.[facility] RATIO, URINE, [id number] 04:13:09* Test Item Value Reference Range Interpretation Comme nts CREATININE, URINE, RANDOM (test code = 2072) 237.4 MG/DL NOT ESTAB ALBUMIN, URINE, RANDOM (test code = 51509) 16.1 MG/DL NOT ESTAB CALC ALBUMIN/CREAT, RND (test code = 60231) 68 MG/G <30 H Note: Albumin/Cr eatinine ratio reference interval reflects ADA and NKF guidelines. UNLESS OTHERWISE INDICATED, ALL TESTING PERFORMED [facility] [address] [place] [id number] AUT[employer] SEAT COVER INSTALLER: MARNI AYALA M.D. CLIA NUMBER [id number] [place]. [id number] CULTURE, [id number] 09:29:28SPECIMEN NUMBER: [id number] CULTURE, URINE SPECIMEN NUMBER: [id number] SPECIMEN COMMENT: URINE SOURCE: URINE REPORT STATUS: FINAL FINAL REPORT: 09/27/2021 10-50,000 CFU/ML UROGENITAL KEVIN PRESENT NO CO MMON PATHOGENSHEMOGLOBIN [id number] 05:50:15* Test Item Value Reference Range Interpretation Comme nts HEMOGLOBIN A1c (test code = 11396) 5.5 % 4.2-5.6 UNLESS OTHERWISE INDICATED, ALL TESTING PERFORMED [facility] [address] [place] [address] AUT[employer] SEAT COVER INSTALLER: MARNI AYALA M.D. CLIA NUMBER [id number] [place]. [id number] HIV 1/2 4TH GEN, RFLX [id number] 04:24:57* Test Item Value Reference Range Interpretation Comme nts HIV 1/2 4TH GEN, RFLX CONF ( test code = 3514) NON-REACTIVE NON-REACTIVE HEPATITIS PANEL, [id number] 04:24:57* Test Item Value Reference Range Interpretation Comme nts HEPATITIS A IgM (test code = 54253) NON-REACTIVE NON-REACTIVE HEPATITIS B CORE IgM (test code = 4644) NON-REACTIVE NON-REACTIVE HEPATITIS B SURF AG (test code = 2739) NON-REACTIVE NON-REACTIVE HEPATITIS C ANTIBODY (test code = 4675) NON-REACTIVE NON-REACTIVE INTERPRETATION HEPATITIS A: (test code = 2552) (NOTE) Hepatitis A serology shows no evidence of acute hepatitis A. INTERPRETATION HEPATITIS B: (test code = 72902) (NOTE) Hepatitis B serology shows no evidence of acute hepatitis B andno indication of exposure to hepatitis B virus in the previous jese eight months. INTERPRETATION HEPATITIS C: (test code = 89767) (NOTE) Hepatitis C serology shows no evidence of exposure to hepatitisC virus at this time. It can take up to 12 months after exposure tothe hepatitis C virus for antibodies to become detectable in the blood in certain patients. CBC W/AUTO DIFF WITH [id number] 04:23:45* Test Item Value Reference Range Interpretation [...] 0.00-0.10 ABS NUCLEATED RBCS (test code = 51767) 0.00 K/UL 0.00-0.11 COMPREHENSIVE METABOLIC [id number] 04:16:43* Test Item Value Reference Range Interpretation Comme nts GLUCOSE (test code = 2216) 91 MG/DL 70-99 BUN (test code = 2207) 22 MG/DL 8-23 CREATININE (test code = 2213) 0.68 MG/DL 0.80-1.40 L eGFR (2020 CKD-EPI) (test code = 64529) 95 ML/MIN/1.73 >60 CALC BUN/CREAT (test code [...] 19 U/L 9-50 ALT (test code = 2219) 15 U/L 5-50 LIPID [id number] 04:16:43* Test Item Value Reference Range Interpretation Comme nts CHOLESTEROL (test code = 2210) 265 MG/DL <200 H TRIGLYCERIDES (test code = 2232) 273 MG/DL <150 H HDL CHOLESTEROL (test code = 222) 33 MG/DL >39 L CALC LDL CHOL (test code = 2236) 183 MG/DL <100 H NOTE: CALCULATED LDL IS BASED ON YANCY-CAREY METHOD WHICHINCLUDES ADJUSTABLE TRIGLYCERIDE:VLDL CHOLESTEROL RATIO.THIS FACTOR VARIES BY MEASURED TRIGLYCERIDE AND NON-HDLCHOLESTEROL CONCENTRATIONS WITH INCREASED CALCULATED LDL SEENIN HIGHER TRIGLYCERIDE OR LOWER NON-HDL SPECIMENS. FOR MOREINFORMATION, SEE CLIENT ANNOUNCEMENT AT [email or web address] RISK RATIO LDL/HDL (test code = 2238) 5.55 RATIO <3.55 H [id number] 03:13:28* Test Item Value Reference Range Interpretation Comme nts RPR RESULT (test code = 3501) NON-REACTIVE NON-REACTIVE RPR TITER (test code = 3500) NOT INDIC. TITER NOT INDIC. POCT URINALYSIS, [id number] 21:22:00* Test Item Value Reference Range Interpretation [...] U APPEAR (test code = 3267) CLEAR [facility] URINALYSIS, [id number] 21:22:00 * Test Item Value Reference Range [...] U APPEAR (test code = 3267) CLEAR [facility] METABOLIC [id number] 05:24:00* Test Item Value Reference Range Interpretation [...] CA) 8.6 MG/DL 8.4-10.2 N CBC W/AUTO [id number] 05:05:00* Test Item Value Reference Range Interpretation [...] code = NRBC#) 0.00 K/mm3 0.0-0.1 N [id number] 08:28:00* Test Item Value Reference Range Interpretation Comme nts ACT-ISTAT (test code = ACTI) 213 SEC 74-137 H BASIC METABOLIC [id number] 07:20:00* Test Item Value Reference Range Interpretation [...] mg/dL HIGH.........160-189 mg/dL VERY HIGH.........>/= 190 mg/dL [id number] 07:20:00* Test Item Value Reference Range Interpretation Comme nts MAGNESIUM (test code = MAG) 2.5 MG/DL 1.6-2.3 H BASIC METABOLIC [id number] 07:09:00* Test Item Value Reference Range Interpretation [...] Test Item Value Reference Range Interpretation Comme [facility] TRIGLYCERIDES (test code = TRIG) 99 MG/DL TRIGLYCERIDES REFERENCE RANGE:Normal: <150 mg/dLBorderline High: 150-199 mg/dLHigh: 200-499 mg/dLVery High: >=500 mg/dL CHOLESTEROL (test code = CHOL) 139 MG/DL <200 HDL CHOLESTEROL (test code = HDL) 36 MG/DL 40-59 L LIPOPROTEIN LDL (test code = LDL) MG/DL 0-99 [id number] 07:09:00* Test Item Value Reference Range Interpretation [facility] MAGN[facility] (test code = MAG) 2.5 MG/DL 1.6-2.3 H PROTHROMBIN [id number] 06:59:00* Test Item Value Reference Range Interpretation Comme [facility] PROTHROMBIN TIME PATIENT (test code = PTP) [...] recurrent systemic embolism. 3.0 - 4.5 PTT [id number] 06:59:00* Test Item Value Reference Range Interpretation Comme [facility] PTT ACTIVATED (test code = APTT) 29.2 SECONDS 22.0-33.0 N CBC W/AUTO [id number] 06:46:00* Test Item Value Reference Range Interpretation Comme [...]
[2024-04-26] MEDS ORDERED: IBUPROFEN 400 MG TAB ONE (20:52)
[2024-04-26] MEDS ORDERED: HYDROCODONE/APAP 5/325 MG TAB ONE ×2 (20:52→23:31)
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
--- NOTE | 2024-04-26 21:46 | RAD REPORT ---
Exam:Hand Left 3 View CLINICAL HISTORY: Left hand pain FINDINGS: No fracture or dislocation seen Erosive arthritis DIP joints
--- NOTE | 2024-04-26 21:47 | RAD REPORT ---
EXAMINATION: Tib Fib Left CLINICAL INDICATION: Leg pain FINDINGS: No fracture seen
--- NOTE | 2024-04-26 21:47 | RAD REPORT ---
EXAMINATION: Tib Fib Right CLINICAL INDICATION: Leg pain FINDINGS: No fracture seen
--- NOTE | 2024-04-26 21:48 | RAD REPORT ---
Exam:Femur Right CLINICAL HISTORY: Right leg pain. FINDINGS: No fracture seen. Bones are osteoporotic
[2024-04-26] MEDS ORDERED: TDAP (DIPHTH,PERTUSS(ACELL),TET VAC) 0.5 ML VIAL IMVAC ONE (23:31)
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
[2024-04-27] MEDS ORDERED: ONDANSETRON 4 MG (ODT) TAB ONE (06:38)
[2024-04-27] MEDS ORDERED: methocarbamoL 750 MG TAB ONE (06:38)
[2024-04-27] MEDS ORDERED: HYDROCODONE/APAP 5/325 MG TAB ONE (06:38)
[2024-04-27 06:53] VITALS: TEMP 97.9
[2024-04-27 07:07] VITALS: BP 153/57; O2SAT 99
== END 2024-04-27 07:06 | disposition home or self-care (01) ==
LOC: ER 20:21
DX: S12.041A Nondisplaced lateral mass fracture of first cervical vertebra, initial encounter for closed fracture (principal); S63.601A Unspecified sprain of right thumb, initial encounter; S80.812A Abrasion, left lower leg, initial encounter; S80.01XA Contusion of right knee, initial encounter; V57.5XXA Driver of pick-up truck or van injured in collision with fixed or stationary object in traffic accident, initial encounter; I10 Essential (primary) hypertension; Z95.818 Presence of other cardiac implants and grafts
CPT/HCPCS: 70450; 71250; 72125; 74176; 73130; 73552; 73590 ×2; 96372; 99284; Q0162

== ENCOUNTER 2024-06-18 11:00 | Day surgery (SDC) | payer OTHER ==
[2024-06-14 10:41] LABS: Absolute Eosinophils 0.1 K/uL (0-0.5); Absolute Lymphocytes (CBC) 0.9 K/uL (0.7-4.9); Absolute Monocytes 0.5 K/uL (0.1-1.3); Absolute Neutrophil 4.5 K/uL (1.8-8.0); Basophils % 0.7 % (0-1.3); Eosinophils % 1.3 % (0-4.4); Hematocrit 36.7 % (39.6-49.0); Hemoglobin 12.5 g/dL (13.6-17.9); Lymphocytes % 14.3 % (15.3-44.8); MCH 31.8 pg (27.0-35.0); MCHC 34.2 g/dL (32.0-36.0); MCV 93.1 fL (80-100); MPV 9.3 fL (7.6-11.3); Monocytes % 8.5 % (3.3-12.3); Neutrophils % 75.2 % (41.7-73.7); Nucleated Red Blood Cells % 0.1 % (0-0); Platelets 203 thou/uL (152-406); RBC Red Blood Cell Count 3.94 M/uL (4.33-5.43); Red Cell Distribution Width 13.5 % (12.1-15.2)
[2024-06-14 10:55] LABS: PTT, Activated Partial Thromb 31.9 SECONDS (24.3-36.9); Protime INR 1.05
--- NOTE | 2024-06-17 12:11 | EKG ---
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
[2024-06-18] MEDS ORDERED: NA CHLORIDE 0.9% 500 ML ONE (11:12)
[2024-06-18] MEDS ORDERED: HEPA 1000U/500MLS 1,000 UNIT/500 ML BAG IV ONE (12:39)
[2024-06-18] MEDS ORDERED: HEPARIN 10,000 UNIT/10 ML VIAL IV ONE (12:40)
[2024-06-18] MEDS ORDERED: MIDAZOLAM HCL 2 MG/2 ML INJ ONE (12:40)
[2024-06-18] MEDS ORDERED: ATROPINE SULF 1 MG/10 ML SYR IV ONE (12:40)
[2024-06-18] MEDS ORDERED: NITROGLYCERIN/D5W 50 MG/250 ML BTL IV ONE (12:40)
[2024-06-18] MEDS ORDERED: ASPIRIN 325 MG TAB ONE (12:41)
[2024-06-18] MEDS ORDERED: CLOPIDOGREL 75 MG TABLET ONE (12:41)
[2024-06-18] MEDS ORDERED: HEPARIN 5000 UNIT/ML 1 ML VIAL ONE (12:41)
[2024-06-18] MEDS ORDERED: TICAGRELOR 90 MG TABLET PO ONE (12:41)
[2024-06-18] MEDS ORDERED: LIDOCAINE 1% 20 ML MDV ONE (12:42)
[2024-06-18] MEDS ORDERED: FENTANYL CITR 100 MCG/2 ML ONE (12:42)
[2024-06-18] MEDS ORDERED: VERAPAMIL HCL 10 MG/4 ML VIAL IV ONE (12:45)
[2024-06-18 16:08] VITALS: O2SAT 98
[2024-06-18 16:23] VITALS: BP 138/52
--- NOTE | 2024-06-18 20:20 | OP ---
Date of Procedure: 06/18/2024 Surgeon: GLADIS BELTRAN Procedures Performed: 1. Selective coronary angiogram. 2. Percutaneous coronary intervention of severe mid OM1 branch disease, used 2.5 x 12 mm Synergy drug -eluting stent. Indication: Unstable angina with known coronary artery disease. Access: Right radial artery 6-[place], closed with TR band. Complications: None. Bleeding: Less than 50 mL. Total Sedation Time: 1 hour. Description Of Procedure: After risks, benefits, and alternatives were explained, patient agreed to procedure and signed informed consent. The patient was brought into cardiac catheterization laborato , prepped and draped in sterile fashion. Then, I accessed right radial artery using pediatric micr opuncture kit, placed 6-[place] Slender sheath. Took a 6-[place] EBU3.5 guide into aortic root, engage d left main, took standard views. His RCA is very small and negligible. I then took standard views and then gave systemic heparin to assure ACT level above 250 and took Runthrough wire into the left c irc into the OM passing the area of stenosis and using a 3.0 balloon lesion expanded very well and th en placed 2.5 x 12 mm Synergy drug-eluting stent, excellent expansion with GOPAL-3 flow at the end. N o complications. Wire was removed. Final angiogram was satisfactory and then removed the guide and the sheath and placed TR band with good hemostasis. Findings: 1. Left main is normal. 2. LAD: Widely patent proximal to mid LAD stent. Diagonal branch has luminal regularities. 3. Left circumflex: Very large and dominant with the proximal 40% and then mid to distal multiple ar eas of 30% to 40%, but very large artery. OM1 branch has mid 80% to 90% stenosis, status post succes sful PCI. Distally, there is 40% stenosis. 4. RCA: RCA was not injected and known to be small and nondominant. Conclusion: Severe mid OM disease, widely patent LAD stent, status post successful PCI of the OM. Plan: Aspirin, Plavix, and statin. Follow up in 1 week in the office. SR/MODL Voice ID: [id number] Report ID: [id number]
== END 2024-06-18 16:40 | disposition home or self-care (01) ==
LOC: PRE 11:00 → CCL 16:40
PROVIDERS: ATTEND Internal Medicine
DX: I25.110 Atherosclerotic heart disease of native coronary artery with unstable angina pectoris (principal); I10 Essential (primary) hypertension; E78.2 Mixed hyperlipidemia; E78.00 Pure hypercholesterolemia, unspecified; Z95.5 Presence of coronary angioplasty implant and graft; Z79.82 Long term (current) use of aspirin; Z79.899 Other long term (current) drug therapy
CPT/HCPCS: 93005; 85025; 80048; 36415; 85610; 85347; 85730; 93454; 76937; C1893; Q9967; C1725; C9600; J1644; J2003; J2250; J3010; J7040; 93458; 99152; J0461